=== PATIENT | female | born 1970 | race Caucasian/White ===

== ENCOUNTER 2018-06-11 04:01 | Inpatient (IN) ==
[2018-06-11] MEDS ORDERED: Sod Chloride 0.9% Inj 1,000 ML IV.SIG ONE (06:28)
[2018-06-11] MEDS ORDERED: Dexamethasone Inj 20 MG/5 ML Vial IV.PUSH ONE (06:28)
--- NOTE | 2018-06-11 06:52 | XR ---
EXAM DATE: 06/11/2018 6:49 AM EST AGE/SEX: 47 years / Female INDICATIONS: Fever. CLINICAL DATA: This is the patient's initial encounter. Patient reports that signs and symptoms have been present for 1 day and indicates a pain score of 0/10. MEDICAL/SURGICAL HISTORY: Asthma. None. COMPARISON: [facility] [place], 02/14/2015. . FINDINGS: A single AP view of the chest demonstrates the lungs to be symmetrically aerated without evidence of mass, infiltrate or effusion. The cardiomediastinal contours are unremarkable. Osseous structures a re intact. CONCLUSION: No acute disease Electronically signed by: Gonsalo Duque MD 06/11/2018 6:51 AM EST
[2018-06-11 07:01] LABS: Baso # (Auto) 0.1 th/mm3 (0.0-0.2); Baso % (Auto) 0.8 % (0.0-2.0); Eos # (Auto) 0.3 th/mm3 (0.0-0.4); Eos % (Auto) 2.5 % (0.0-4.0); Hematocrit 45.2 % (35.0-46.0); Hemoglobin 15.5 gm/dL (11.6-15.3); Lymph # (Auto) 2.3 th/mm3 (1.0-4.8); Lymph % (Auto) 18.5 % (9.0-44.0); Mean Corpuscular HGB Conc 34.3 % (32.0-36.0); Mean Corpuscular Hemoglobin 31.7 pg (27.0-34.0); Mean Corpuscular Volume 92.4 fL (80.0-100.0); Mono # (Auto) 0.9 th/mm3 (0.0-0.9); Mono % (Auto) 6.9 % (0.0-8.0); Neut % (Auto) 71.3 % (16.0-70.0); Platelet Count 274 th/mm3 (150-450); Red Blood Count 4.89 mil/mm3 (4.00-5.30); White Blood Count 12.6 th/mm3 (4.0-11.0)
[2018-06-11 07:09] LABS: Alanine Aminotransferase 43 U/L (10-53); Albumin 3.6 g/dL (3.4-5.0); Anion Gap 6 meq/L (5-15); Aspartate Aminotransferase 13 U/L (15-37); Blood Urea Nitrogen 10 mg/dL (7-18); Calcium 8.8 mg/dL (8.5-10.1); Carbon Dioxide 31.2 meq/L (21.0-32.0); Chloride 104 meq/L (98-107); Glomerular Filtration Rate 60 mL/min (>89); Glucose,Random 95 mg/dL (74-106); Potassium 3.1 meq/L (3.5-5.1); Sodium 141 meq/L (136-145)
[2018-06-11 07:12] LABS: Alkaline Phosphatase 127 U/L (45-117); Total Protein 7.8 g/dL (6.4-8.2)
--- NOTE | 2018-06-11 07:24 | ED ---
HPI General Chief complaint: Skin/Abscess/Foreign Body Stated complaint: Cold,Flu Time Seen by Provider: 06/11/18 06:28 History of Present Illness HPI narrative: This is a 47-year-old female who presents today with complaints of diffuse body rash, fevers, sore throat, shingles to her buttocks. Patient states that she has a history of hypertension and was was recently started on blood pressure medication on 05/30/2018. She reports that 4 days ago she is noticed a sore throat and 2 days after that the rash came up over her chest back legs and trunk. Patient also has shingles to her buttocks. She states that she had it a few weeks ago and it resolved however is now coming back again. The patient does give history that she is been using drugs over the last few days. She states that she shot up in her right arm and has a erythematous warm warty edematous area on her right lateral elbow area. She also reports using marijuana and "G". She states that she is never used it until those 4 days. She states that she was going through a mid life crisis. Related Data Home Medications Medication Instructions Recorded Confirmed buspirone 15 mg PO BID 06/11/18 06/11/18 diltiazem HCl 180 mg PO DAILY 06/11/18 06/11/18 fluoxetine 20 mg PO DAILY 06/11/18 06/11/18 pregabalin [Lyrica] 150 mg PO TID 06/11/18 06/11/18 Allergies Allergy/AdvReac Type Severity Reaction Status Date / Time alcohol Allergy Mild Anaphylaxis Verified 06/11/18 04:36 sumatriptan AdvReac Intermediate Itching Verified 06/11/18 04:36 Review of Systems ROS: all other systems reviewed are negative Constitutional Reports chills and Reports fever(s) Eyes Denies blurry vision, Denies diplopia and Denies eye pain ENT Reports system reviewed and no additional complaints, except as docu, Denies neck pain, Denies post nasal drip and Reports sore throat Cardiovascular Denies chest pain, Denies diaphoresis, Denies syncope and Reports dyspnea Respiratory Denies chest congestion, Reports cough and Reports dyspnea Gastrointestinal Denies abdominal pain, Reports nausea and Denies vomiting Genitourinary Reports system reviewed and no additional complaints, except as docu Musculoskeletal Denies back pain, Denies neck pain, Denies numbness and Denies tingling Integumentary/Breasts Reports new lesions (Shingles type lesions to her buttocks.) and Reports rash ( Diffuse urticarial raised macular rash to chest trunk back and legs.) Neurologic Reports system reviewed and no additional complaints, except as docu [facility] Medical History Medical History Anxiety (Acute) Asthma (Acute) Depression (Acute) HTN (hypertension) (Acute) Neuropathy (Acute) Social History Social History Smoking Status: Current every day smoker Tobacco Type: Cigarettes How Often Do You Have a Drink Containing Alcohol: Never Recent Travel in [facility] within the Last 8 Weeks: No Recent Out of Country Travel within the Last 8 Weeks: No Immunization History Tetanus Immunization: >5 Years Exam Narrative Exam Narrative: GENERAL: Well-developed well-nourished female in no acute respiratory distress. SKIN: Focused skin assessment warm/dry. Patient has diffuse macular rash to her anterior chest back and legs. This does have a look of a drug eruption. There is also macular papular rash to her buttocks is consistent with shingles. HEAD: Atraumatic. Normocephalic. EYES: No scleral icterus. No injection or drainage. ENT: No nasal bleeding or discharge. Mucous membranes pink and moist. NECK: Trachea midline. Supple. CARDIOVASCULAR: Regular rate and rhythm. No murmur appreciated. RESPIRATORY: No accessory muscle use. Clear to auscultation. Breath sounds equal bilaterally. GASTROINTESTINAL: Abdomen soft, non-tender, nondistended. Hepatic and splenic margins not palpable. MUSCULOSKELETAL: No obvious deformities. No clubbing. No cyanosis. No edema. Erythematous edematous area to the right lateral forearm. There is no fluctuance. This is consistent to a possible early cellulitis versus deep abscess. NEUROLOGICAL: Awake and alert. No obvious cranial nerve deficits. Motor grossly within normal limits. Normal speech. Course Initial Documented Vital Signs Temperature 98.6 F 06/11/18 04:32 Pulse Rate 99 H 06/11/18 04:32 Respiratory Rate 17 06/11/18 04:32 Blood Pressure 136/85 06/11/18 04:32 Pulse Oximetry 99 06/11/18 04:32 Last Documented Vital Signs Temperature 98.6 F 06/11/18 04:32 Pulse Rate 99 H 06/11/18 04:32 Respiratory Rate 17 06/11/18 04:32 Blood Pressure 136/85 06/11/18 04:32 Pulse Oximetry 98 06/11/18 06:43 Sign Out Sign Out Data: Patient Sign Out occurred on 06/11/18 at 08:01. Patient's care was discussed, and care was transferred from Dong Frazier MD to Adis Rios. Sign Out Comment: 47-year-old female with a history of hypertension, presents today with complaints of diffuse rash. Patient also has subjective fever and sore throat. She has exudative tonsillitis. She also has a erythematous woody edematous area to her right forearm. She states this is an area where she shot up methamphetamines. I anticipate the patient will need admission. Disposition will be per Dr. Rios. Last updated by Dong Frazier MD at 06/11/18 07:25 Post-Handoff Eval: Reactive leukocytosis of 12,000 without any left shift Electrolytes are all within normal limits with the exception of potassium of 3.1 which will need replacement Lactic acid 1.4 not significant for severe sepsis LFTs are within normal limits Monoscreen negative Strep positive Patient on reevaluation was nontoxic, tolerated p.o., tolerated a walk test with normal pulse oximetry of 98 after ambulating around. Patient will be treated with Bicillin 1,200,000 units IM x1 due to patients drug use and scarlet fever findings will be observed for myocarditis Medical Decision Making MDM Narrative Medical decision making narrative: 47-year-old female presents with diffuse rash. Patient also has subjective fever and sore throat. Patient has erythematous posterior pharynx with questionable tonsillar exudate. She is afebrile at the time of her presentation. Patient does give history that she is been using drugs including IV drugs. Labs are pending at the time of signout. She is been signed out to Dr. Rios who will follow up. I anticipate this patient will need admission. Medical Screen Exam Complete: Yes Emergency Medical Condition: Yes Differential Diagnosis Differential Diagnosis: Drug reaction versus septic emboli versus allergic reaction versus viral exanthem Lab Data Result diagrams: 06/11/18 06:35 06/11/18 06:35 Lab Results 06/11/18 06/11/18 06/11/18 Range/Units 05:50 06:30 06:35 WBC 12.6 H (4.0-11.0) th/mm3 RBC 4.89 (4.00-5.30) mil/mm3 Hgb 15.5 H (11.6-15.3) gm/dL Hct 45.2 (35.0-46.0) % MCV 92.4 (80.0-100.0) fL MCH 31.7 (27.0-34.0) pg MCHC 34.3 (32.0-36.0) % RDW 13.0 (11.6-17.2) % Plt Count 274 (150-450) th/mm3 MPV 9.0 (7.0-11.0) fL Neut % (Auto) 71.3 H (16.0-70.0) % Lymph % (Auto) 18.5 (9.0-44.0) % [place] % (Auto) 6.9 (0.0-8.0) % Eos % (Auto) 2.5 (0.0-4.0) % Baso % (Auto) 0.8 (0.0-2.0) % Neut # (Auto) 9.0 H (1.8-7.7) th/mm3 Lymph # (Auto) 2.3 (1.0-4.8) th/mm3 [place] # (Auto) 0.9 (0.0-0.9) th/mm3 Eos # (Auto) 0.3 (0.0-0.4) th/mm3 Baso # (Auto) 0.1 (0.0-0.2) th/mm3 WBC Differential . Differential Comment Auto diff final Sodium (136-145) meq/L Potassium (3.5-5.1) meq/L Chloride (98-107) meq/L Carbon Dioxide (21.0-32.0) meq/L Anion Gap (5-15) meq/L BUN (7-18) mg/dL Creatinine (0.50-1.00) mg/dL Estimated GFR (>89) mL/min Random Glucose (74-106) mg/dL Lactic Acid 1.4 (0.4-2.0) mmol/L Calcium (8.5-10.1) mg/dL Total Bilirubin (0.2-1.0) mg/dL AST (15-37) U/L ALT (10-53) U/L Alkaline Phosphatase (45-117) U/L Total Protein (6.4-8.2) g/dL Albumin (3.4-5.0) g/dL Monoscreen Neg (Neg) 06/11/18 Range/Units 06:35 WBC (4.0-11.0) th/mm3 RBC (4.00-5.30) mil/mm3 Hgb (11.6-15.3) gm/dL Hct (35.0-46.0) % MCV (80.0-100.0) fL MCH (27.0-34.0) pg MCHC (32.0-36.0) % RDW (11.6-17.2) % Plt Count (150-450) th/mm3 MPV (7.0-11.0) fL Neut % (Auto) (16.0-70.0) % Lymph % (Auto) (9.0-44.0) % [place] % (Auto) (0.0-8.0) % Eos % (Auto) (0.0-4.0) % Baso % (Auto) (0.0-2.0) % Neut # (Auto) (1.8-7.7) th/mm3 Lymph # (Auto) (1.0-4.8) th/mm3 [place] # (Auto) (0.0-0.9) th/mm3 Eos # (Auto) (0.0-0.4) th/mm3 Baso # (Auto) (0.0-0.2) th/mm3 WBC Differential Differential Comment Sodium 141 (136-145) meq/L Potassium 3.1 L (3.5-5.1) meq/L Chloride 104 (98-107) meq/L Carbon Dioxide 31.2 (21.0-32.0) meq/L Anion Gap 6 (5-15) meq/L BUN 10 (7-18) mg/dL Creatinine 0.99 (0.50-1.00) mg/dL Estimated GFR 60 L (>89) mL/min Random Glucose 95 (74-106) mg/dL Lactic Acid (0.4-2.0) mmol/L Calcium 8.8 (8.5-10.1) mg/dL Total Bilirubin 0.3 (0.2-1.0) mg/dL AST 13 L (15-37) U/L ALT 43 (10-53) U/L Alkaline Phosphatase 127 H (45-117) U/L Total Protein 7.8 (6.4-8.2) g/dL Albumin 3.6 (3.4-5.0) g/dL Monoscreen (Neg) Imaging Data Radiologist's impression: Chest X-Ray 06/11/18 06:28 CONCLUSION: No acute disease Discharge Plan Discharge Disposition Patient Disposition: 30 Still Patient Discharge Condition Condition: Stable Discharge Details Diagnosis: Scarlet fever Physicians Team ED Provider: Adis Rios Rxs /Orders / Referrals /Forms Prescriptions: No Action diltiazem HCl 180 mg Capsule,Extended Release 24 Hr 180 mg PO DAILY RF: 0 fluoxetine 20 mg Capsule 20 mg PO DAILY RF: 0 buspirone 15 mg Tablet 15 mg PO BID RF: 0 pregabalin [Lyrica] 150 mg Capsule 150 mg PO TID RF: 0 Discharge Interventions Interventions: Vital Signs Last Done: 06/11/18 06:07 Status ED Status: With Doctor
[2018-06-11 07:36] LABS: Mono Screen Neg (Neg)
[2018-06-11] MEDS ORDERED: PENICILLIN IM ONE (08:01)
[2018-06-11] MEDS ORDERED: BENZATHINE IM ONE (08:01)
[2018-06-11 09:39] LABS: Amorphous Sediment,Urine Rare /hpf; Bacteria,Urine Moderate /hpf; Bilirubin,Urine Negative (Negative); Color,Urine Amber (Yellw/Straw); Glucose,Urine (UA) Negative (Negative); Leukocyte Esterase,Urine Trace (Negative); Mucus,Urine Many /lpf (Occasional); Nitrite,Urine Negative (Negative); Specific Gravity,Urine 1.026 (1.002-1.035); Squamous Epithelial Cell,Urine 20 /hpf (0-5)
[2018-06-11 09:40] LABS: Clarity,Urine Hazy (Clear)
[2018-06-11] MEDS: FLUoxetine 20 MG Capsule PO SCH (11:00)
--- NOTE | 2018-06-11 11:16 | P.HPIM ---
History of Present Illness Primary Care Physician: Elissa Chavarria DO Chief Complaint: Rash History of Present Illness: Ms. Calvert is a pleasant 47 y/o female with HTN, depression/anxiety, chronic back pain, shingles and tobacco abuse. She presented to the ED at [facility] [place] on 06/11/18 with complaints of diffuse body rash, fevers, sore throat, and an outbreak of shingles to her buttock. Patient states that she has a history of hypertension and was was recently started on Diltiazem 180mg daily on 05/30/2018. Prior to that she had been on Norvasc but had swelling and prior to that she had been in Lisinopril. Pt also with a recent hx of using multiple illicit drugs. Around 6 days ago she used, reportedly for the first time, smoked crack cocaine and took mushrooms on the same day. She also smoked pot that same day which was not a new drug for her. She reports that 4 days ago she noticed a mild sore throat and some post-nasal drip. Then 2 days ago she left a friend inject her right arm with crystal meth. Her right antecubital fossa has become increasingly red and swollen and tender. Then yesterday the pt reports that she developed a rash on her neck and chest which quickly spread to her abdomen, back, arms and legs. She has some erythematous macules on her forehead and ears but mostly spares the face. Over the last 2 days she has had some subjective fevers and chills with cold sweats but she did not take her temperature. Patient also has shingles to her buttocks which has been a recurrent issue for some time. She states that she had it a few weeks ago and it resolved however is now coming back again about a week ago. In the ED was noted to have exudative tonsillitis and throat swab tested positive for Group A Strep. Her WBC count was 12,000 without any left shift. Electrolytes were all within normal limits with the exception of potassium of 3.1. LFTs were within normal limits. [place]-screen negative. She was given an IM injection of Bicillin 1,200,000 units IM x1 and Decadron. Past Medical Hx: HTN Chronic back pain Anxiety Depression GERD Obesity Shingles, right buttock Past Surgical Hx: D&C x 3 Dilation and evacuation x 1 Cholecystectomy Foot/toe surgery Rhinoplasty for deviated septum Family Hx: Noncontributory Social Hx: Denies any alcohol use (+)Tobacco use, 1ppd since age 12 (+)Illicit drug use, recently used crack cocaine, mushrooms, marijuana around 6 days prior to admission. Injected crystal meth 2 days prior to admission. Pt has snorted cocaine in the past as well. 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 She is not , no children. Diagnosis (1) HTN (hypertension): (2) Scarlet fever: (3) Illicit drug use: (4) Tobacco use: (5) Cellulitis: (6) Shingles rash: Medications and Allergies Allergies Allergy/AdvReac Type Severity Reaction Status Date / Time alcohol Allergy Mild Anaphylaxis Verified 06/11/18 04:36 sumatriptan AdvReac Intermediate Itching Verified 06/11/18 04:36 Home Medications Medication Instructions Recorded Confirmed Type buspirone 15 mg PO BID 06/11/18 06/11/18 History diltiazem HCl 180 mg PO DAILY 06/11/18 06/11/18 History fluoxetine 20 mg PO TID 06/11/18 06/11/18 History pregabalin [Lyrica] 150 mg PO TID 06/11/18 06/11/18 History Active Medications: Active Medications Acetaminophen (Tylenol) 650 mg PO Q4H PRN PRN Reason: Temp > 100.4 Al Hydroxide/Mg Hydroxide (Milk Of Dahiana [place]) 30 ml PO Q12H PRN PRN Reason: Mild Constipation Buspirone HCl (Buspar) 15 mg PO BID [facility] Fluoxetine HCl (Prozac) 20 mg PO DAILY [facility] Last Admin: 06/11/18 11:00 Dose: 20 mg Miscellaneous (Pill Splitter) 1 each OTHER UNSCH PRN PRN Reason: SEE LABEL COMMENTS Ondansetron HCl (Zofran Inj) 4 mg IV.PUSH Q6H PRN PRN Reason: NAUSEA OR VOMITING Senna/Docusate Sodium (Deidra-Colace) 1 tab PO BID [facility] Sodium Chloride (Ns Flush) 2 ml IV.FLUSH PRN PRN PRN Reason: FLUSH AFTER USING IV ACCESS Last Admin: 06/11/18 09:08 Dose: 2 ml Physical Exam Vital signs: Last Vital Signs Temp 98.4 F 11/04/18 10:31 Pulse 78 06/11/18 10:31 Resp 20 06/11/18 10:31 BP 141/82 H 06/11/18 10:31 Pulse Ox 97 06/11/18 10:31 Narrative: GENERAL: NAD, AAOx3 SKIN: Warm and dry. Patient has diffuse macular rash to her anterior chest, back , neck, arms and legs even in the groin area. Some noted macular rash on the forehead/scalp and on the ears bilaterally. There is also macular papular rash lesion to her buttocks is consistent with shingles. HEAD: Atraumatic. Normocephalic. EYES: Pupils equal and round. No scleral icterus. No injection or drainage. ENT: No nasal bleeding or discharge. Mucous membranes pink and moist. NECK: Trachea midline. No JVD. CARDIOVASCULAR: Regular rate and rhythm. RESPIRATORY: No accessory muscle use. Clear to auscultation. Breath sounds equal bilaterally. GASTROINTESTINAL: Abdomen soft, non-tender, nondistended. Hepatic and splenic margins not palpable. MUSCULOSKELETAL: Erythema, swelling and tenderness in the right antecubital fossa. NEUROLOGICAL: Awake and alert. No obvious cranial nerve deficits. Motor grossly within normal limits. Five out of 5 muscle strength in the arms and legs. Normal speech. PSYCHIATRIC: Appropriate mood and affect; insight and judgment normal. Results Labs CBC & Chem 7: 06/12/18 04:51 06/12/18 04:51 Microbiology 06/11/18 06:35 Influenza Types A,B Antigen - Final Nasal Wash Negative for FLU A and B antigen Infection due to influenza A or B cannot be ruled out since the antigen present in the sample may be below the detection limit of the test. 06/11/18 06:35 Group A Streptococcus Screen (INO) - Final Throat Positive Grp A Strep Antigen Imaging Chest X-Ray 06/11/18 06:28 CONCLUSION: No acute disease Caprini VTE Risk Assessment Caprini VTE Risk Assessment: No/Low Risk (score <= 1) Caprini Risk Assessment Model: Point Value = 1 Point Value = 2 Point Value = 3 Point Value = 5 Age 41-60 Minor surgery BMI > 25 kg/m2 Swollen legs Varicose veins or History of unexplained or recurrent spontaneous Oral contraceptives or hormone replacement Sepsis (< 1 month) Serious lung disease, including pneumonia (< 1 month) Abnormal pulmonary function Acute myocardial infarction Congestive heart failure (< 1 month) History of inflammatory bowel disease Medical patient at bed rest Age 61-74 Arthroscopic surgery Major open surgery (> 45 min) Laparoscopic surgery (> 45 min) Malignancy Confined to bed (> 72 hours) Immobilizing plaster cast Central venous access Age >= 75 History of VTE Family history of VTE Factor V Leiden Prothrombin [id number] Lupus anticoagulant Anticardiolipin antibodies Elevated serum homocysteine Heparin-induced thrombocytopenia Other congenital or acquired thrombophilia Stroke (< 1 month) Elective arthroplasty Hip, pelvis, or leg fracture Acute spinal cord injury (< 1 month) Prophylaxis Regimen: Total Risk Factor Score Risk Level Prophylaxis Regimen 0-1 Low Early ambulation 2 Moderate Order ONE of the following: *Sequential Compression Device (SCD) *Heparin 5000 units SQ BID 3-4 Higher Order ONE of the following medications: *Heparin 5000 units SQ TID *Enoxaparin/Lovenox 40 mg SQ daily (WT < 150 kg, CrCl > 30 mL/min) *Enoxaparin/Lovenox 30 mg SQ daily (WT < 150 kg, CrCl > 10-29 mL/min) *Enoxaparin/Lovenox 30 mg SQ BID (WT < 150 kg, CrCl > 30 mL/min) AND/OR *Sequential Compression Device (SCD) 5 or more Highest Order ONE of the following medications: *Heparin 5000 units SQ TID (Preferred with Epidurals) *Enoxaparin/Lovenox 40 mg SQ daily (WT < 150 kg, CrCl > 30 mL/min) *Enoxaparin/Lovenox 30 mg SQ daily (WT < 150 kg, CrCl > 10-29 mL/min) *Enoxaparin/Lovenox 30 mg SQ BID (WT < 150 kg, CrCl > 30 mL/min) AND *Sequential Compression Device (SCD) Assessment and Plan Assessment (1) Scarlet fever: Code(s): A38.9 - Scarlet fever, uncomplicated Status: Acute (2) HTN (hypertension): Code(s): I10 - Essential (primary) hypertension Status: Chronic (3) Illicit drug use: Code(s): F19.90 - Other psychoactive substance use, unspecified, uncomplicated Status: Acute (4) Tobacco use: Code(s): Z72.0 - Tobacco use Status: Chronic (5) Cellulitis: Code(s): L03.90 - Cellulitis, unspecified Status: Acute (6) Shingles rash: Code(s): B02.9 - Zoster without complications Status: Acute Plan New onset rash with group A strep positive throat culture, possible Scarlet fever - Pt is a 47 y/o female with HTN, depression/anxiety, chronic back pain, shingles and tobacco abuse. - She presented to the ED at [facility] [place] on 06/11/18 with complaints of diffuse body rash , fevers, sore throat, and an outbreak of shingles to her buttock. Patient states that she has a history of hypertension and was was recently started on Diltiazem 180mg daily on 05/30/2018. Prior to that she had been on Norvasc but had swelling and prior to that she had been in Lisinopril. Pt also with a recent hx of using multiple illicit drugs. Around 6 days ago she used, reportedly for the first time, smoked crack cocaine and took mushrooms on the same day. She also smoked pot that same day which was not a new drug for her. She reports that 4 days ago she noticed a mild sore throat and some post-nasal drip. Then 2 days ago she left a friend inject her right arm with crystal meth. Her right antecubital fossa has become increasingly red and swollen and tender. Then yesterday the pt reports that she developed a rash on her neck and quickly spread to her abdomen, back, arms and legs. She has some erythematous macules on her forehead and ears but mostly spares the face. Over the last 2 days she has had some subjective fevers and chills with cold sweats but she did not take her temperature. - In the ED was noted to have exudative tonsillitis and throat swab tested positive for Group A Strep. - Her WBC count was 12,000 without any left shift. - Electrolytes were all within normal limits with the exception of potassium of 3.1 which will be replaced. LFTs were within normal limits. - [place]-screen negative. - She was given an IM injection of Bicillin 1,200,000 units IM x1 and Decadron. - Pt is on contact isolation - Tylenol PRN fevers - Zofran PRN nausea - Pt was given IVF in the ED - Cardiac diet as tolerated - Consult ID. The exact etiology for the pts diffuse rash is unclear, likely this is related to scarlet fever but can't rule out a reaction to something that was injected into the arm the day prior to the rash eruption. Cellulitis right antecubital fossa, site of IV drug injection - US soft tissue to r/o abscess - give Vancomycin for possible MRSA coverage Shingles, right buttock - Patient also has shingles to her buttocks which has been a recurrent issue for some time. - She states that she had it a few weeks ago and it resolved however is now coming back again about a week ago. - She denies being on any antiviral medications in the past - Start Valtrex 1000mg po TID Chronic back pain Lumbar radiculopathy - Pt takes Lyrica 150mg TID for this for the last 6 months. HTN - Pt had been recently started on Diltiazem 180mg po daily on 05/30/18. With this new rash we will hold on resuming the Diltiazem at this time, unclear if this may be attributing to the rash or if the rash is strictly related to the strep infection. - Clonidine PRN for now - Prior to this she was on Norvasc which caused swelling and prior to that she was on Lisinopril but this reportedly did not control her BP well - C Attending Attestation Patient examined. Assessment and plan formulated with Cara Fong PA-C. I agree with the above. pt developed sore throat. then injected crystal meth into right arm. next developed neck and truncal rash spread to extremities. gets recurrent herpes zoster on right lower back/buttock. throat strep positive. concern for scarlatina rash. echo and blood cx's. valtrex. ED gave 1.2M units IM pcn. vanco for forearm cellulitis. u/s to exclude abscess ID consult. H&P: Quality VTE Deep Vein Thrombosis/Pulmonary Embolism Present on Admission: No
[2018-06-11] MEDS ORDERED: Potassium Chloride 10 MEQ ER Capsule PO ONE (11:37)
[2018-06-11] MEDS ORDERED: Vancomycin Consult Pharmacy OTHER PRN (14:14)
[2018-06-11] MEDS ORDERED: Vancomycin Inj 1,000 MG in Sodium Chlor 0.9% Inj 250 ML IV.SIG SCH (15:00)
[2018-06-11] MEDS ORDERED: Vancomycin Inj 1 GM/200 ML PIGGYBACK IV.SIG SCH (15:00)
[2018-06-11] MEDS: valACYclovir 500 MG Tab PO SCH ×2 (16:20→21:40)
[2018-06-11] MEDS: Vancomycin Inj 2,000 MG in Sodium Chlor 0.9% Inj 500 ML IV.SIG SCH (16:20)
--- NOTE | 2018-06-11 16:38 | US ---
EXAM DATE: 06/11/2018 4:10 PM EST AGE/SEX: 47 years / Female INDICATIONS: Abscess. CLINICAL DATA: This is the patient's initial encounter. Patient reports that signs and symptoms have been present for 3 days and indicates a pain score of 3/10. MEDICAL/SURGICAL HISTORY: Hypertension. Anxiety. Asthma. Depression. Neuropathy. None. COMPARISON: No prior exams available for comparison. FINDINGS: Small amount of fluid is identified tracking within the soft tissues. There is no evidence of organiz ed fluid collections. Soft tissue swelling and hyperemia are noted. CONCLUSION: Soft tissue swelling with stranding fluid and hyperemia but no discrete abscess. Electronically signed by: Carmelo Buckley MD 06/11/2018 4:37 PM EST
[2018-06-11] MEDS: Pregabalin 75 MG Capsule PO SCH (18:47)
[2018-06-11] MEDS ORDERED: Melatonin 5 MG Tablet PO SCH (21:00)
[2018-06-11] MEDS: Senna/Docusate Sodium 8.6/50 MG Tablet PO SCH (21:42)
[2018-06-12 01:08] LABS: Amphetamine Screen,Urine Pos (Neg); Barbiturate Screen,Urine Neg (Neg); Cannabinoid Screen,Urine Pos (Neg); Cocaine Screen,Urine Pos (Neg)
[2018-06-12 01:09] LABS: Opiate Screen,Urine Neg (Neg)
[2018-06-12] MEDS: Acetaminophen 325 MG Tablet PO PRN ×2 (04:41→22:20)
[2018-06-12] MEDS: valACYclovir 500 MG Tab PO SCH ×3 (05:40→22:21)
[2018-06-12 05:48] LABS: Hematocrit 41.3 % (35.0-46.0); Hemoglobin 14.2 gm/dL (11.6-15.3); Lymph # (Auto) 2.4 th/mm3 (1.0-4.8); Lymph % (Auto) 14.5 % (9.0-44.0); Mean Corpuscular HGB Conc 34.3 % (32.0-36.0); Mean Corpuscular Hemoglobin 31.3 pg (27.0-34.0); Mean Corpuscular Volume 91.4 fL (80.0-100.0); Mean Platelet Volume 9.2 fL (7.0-11.0); Mono # (Auto) 0.8 th/mm3 (0.0-0.9); Mono % (Auto) 4.5 % (0.0-8.0); Neut # (Auto) 13.6 th/mm3 (1.8-7.7); Platelet Count 297 th/mm3 (150-450); Red Blood Count 4.52 mil/mm3 (4.00-5.30); Red Cell Distribution Width 13.2 % (11.6-17.2); White Blood Count 16.8 th/mm3 (4.0-11.0)
[2018-06-12 06:14] LABS: Albumin 3.4 g/dL (3.4-5.0); Anion Gap 9 meq/L (5-15); Aspartate Aminotransferase 12 U/L (15-37); Blood Urea Nitrogen 12 mg/dL (7-18); Carbon Dioxide 26.3 meq/L (21.0-32.0); Chloride 109 meq/L (98-107); Glomerular Filtration Rate 65 mL/min (>89); Glucose,Random 124 mg/dL (74-106); Potassium 3.7 meq/L (3.5-5.1); Sodium 144 meq/L (136-145)
[2018-06-12 06:15] LABS: Alanine Aminotransferase 35 U/L (10-53)
[2018-06-12 06:17] LABS: Alkaline Phosphatase 117 U/L (45-117); Total Protein 7.8 g/dL (6.4-8.2)
--- NOTE | 2018-06-12 08:27 | P.PNIM ---
Subjective Interval history: Pt is very anxious this morning because her Prozac order was incorrect. It was ordered at admission to be continued from her med rec but it appears that it was changed possibly by pharmacy to a once daily dose when she takes it three times daily. Pt reports that she has been unable to sleep Her rash is more itchy today and she had been requesting Benadryl overnight but she did not have this available overnight. Physical Exam Vital signs: Last Vital Signs Temp 99.3 F 06/12/18 04:00 Pulse 80 06/12/18 04:00 Resp 18 06/12/18 04:00 BP 156/74 H 06/12/18 04:00 Pulse Ox 96 06/12/18 04:00 Narrative: GENERAL: NAD, AAOx3 SKIN: Warm and dry. Patient has diffuse macular rash to her anterior chest, back , neck, arms and legs even in the groin area. Some noted macular rash on the forehead/scalp and on the ears bilaterally. There is also macular papular rash lesion to her buttocks is consistent with shingles. CARDIO: Regular rate and rhythm. RESP: CTA bilaterally. ABD: +BS, soft, non-tender, nondistended. EXT: Erythema, swelling and tenderness in the right antecubital fossa, improved today Results Labs CBC & Chem 7: 06/12/18 04:51 06/12/18 04:51 Imaging Soft Tissue Ultrasound 06/11/18 00:00 CONCLUSION: Soft tissue swelling with stranding fluid and hyperemia but no discrete abscess. Chest X-Ray 06/11/18 06:28 CONCLUSION: No acute disease Assessment and Plan Assessment (1) HTN (hypertension): Code(s): I10 - Essential (primary) hypertension Status: Chronic (2) Scarlet fever: Code(s): A38.9 - Scarlet fever, uncomplicated Status: Acute (3) Illicit drug use: Code(s): F19.90 - Other psychoactive substance use, unspecified, uncomplicated Status: Acute (4) Tobacco use: Code(s): Z72.0 - Tobacco use Status: Chronic (5) Cellulitis: Code(s): L03.90 - Cellulitis, unspecified Status: Acute (6) Shingles rash: Code(s): B02.9 - Zoster without complications Status: Acute Plan New onset rash with group A strep positive throat culture, possible Scarlet fever - Pt is a 47 y/o female with HTN, depression/anxiety, chronic back pain, shingles and tobacco abuse. - She presented to the ED at [facility] on 06/11/18 with complaints of diffuse body rash , fevers, sore throat, and an outbreak of shingles to her buttock. Patient states that she has a history of hypertension and was was recently started on Diltiazem 180mg daily on 05/30/2018. Prior to that she had been on Norvasc but had swelling and prior to that she had been in Lisinopril. Pt also with a recent hx of using multiple illicit drugs. Around 6 days ago she used, reportedly for the first time, smoked crack cocaine and took mushrooms on the same day. She also smoked pot that same day which was not a new drug for her. She reports that 4 days ago she noticed a mild sore throat and some post-nasal drip. Then 2 days ago she left a friend inject her right arm with crystal meth. Her right antecubital fossa has become increasingly red and swollen and tender. Then yesterday the pt reports that she developed a rash on her neck and quickly spread to her abdomen, back, arms and legs. She has some erythematous macules on her forehead and ears but mostly spares the face. Over the last 2 days she has had some subjective fevers and chills with cold sweats but she did not take her temperature. - In the ED was noted to have exudative tonsillitis and throat swab tested positive for Group A Strep. - Her WBC count was 12,000 without any left shift at admission - Electrolytes were all within normal limits with the exception of potassium of 3.1 which was replaced. LFTs were within normal limits. - [place]-screen negative. - HIV negative. - She was given an IM injection of Bicillin 1,200,000 units IM x1 and Decadron. - Pt is on contact isolation - Tylenol PRN fevers - Zofran PRN nausea - Pt was given IVF in the ED - Cardiac diet as tolerated - Consult ID. The exact etiology for the pts diffuse rash is unclear, likely this is related to scarlet fever but can't rule out a reaction to something that was injected into the arm the day prior to the rash eruption. - Benadryl Oral and topical PRN Cellulitis right antecubital fossa, site of IV drug injection - US soft tissue (06/11/18) --> Soft tissue swelling with stranding fluid and hyperemia but no discrete abscess. - Cont. Vancomycin for possible MRSA coverage Shingles, right buttock - Patient also has shingles to her buttocks which has been a recurrent issue for some time. - She states that she had it a few weeks ago and it resolved however is now coming back again about a week ago. - She denies being on any antiviral medications in the past - Cont. Valtrex 1000mg po TID Chronic back pain Lumbar radiculopathy - Pt takes Lyrica 150mg TID for this for the last 6 months, this was continued HTN - Pt had been recently started on Diltiazem 180mg po daily on 05/30/18. With this new rash we will hold on resuming the Diltiazem at this time, unclear if this may be attributing to the rash as it is a possible SE of Diltiazem or if the rash is strictly related to the strep infection. - Clonidine PRN for now - Prior to this she was on Norvasc which caused swelling and prior to that she was on Lisinopril but this reportedly did not control her BP well - May consider changing Diltiazem to Procardia XL 20mg daily for BP control. Anxiety - Cont. Prozac 20mg TID - Cont. Buspar 15mg BID - Add Xanax 0.5mg Q4H PRN, first dose now Progress Note: Quality VTE Deep Vein Thrombosis/Pulmonary Embolism Present on Admission: No
[2018-06-12] MEDS: Senna/Docusate Sodium 8.6/50 MG Tablet PO SCH (08:41)
[2018-06-12] MEDS: FLUoxetine 20 MG Capsule PO SCH ×3 (08:41→17:04)
[2018-06-12] MEDS: Pregabalin 75 MG Capsule PO SCH ×3 (08:41→17:04)
[2018-06-12] MEDS ORDERED: Menthol 5.8 MG Lozenge BUCCAL PRN (10:01)
[2018-06-12] MEDS ORDERED: ALPRAZolam 0.5 MG Tablet PO ONE (10:01)
[2018-06-12] MEDS: diphenhydrAMINE 2%/Zinc Cream 30 GM Tube TOPICAL PRN (12:08)
--- NOTE | 2018-06-12 14:38 | ECHRPT ---
Indication: SEPSIS POSS ENDOCARDITIS CONCLUSIONS Wall thickness is measured at the upper limits of normal. The left ventricular systolic function is normal with an estimated ejection fraction in the range of 55-60%. There is trace tricuspid valve regurgitation. The estimated pulmonary arterial pressure is 20 mmHg. BP: / HR: Rhythm: MEASUREMENTS (Male / Female) Normal Values Technical Quality:Very technically difficult study 2D ECHO LV Diastolic Diameter PLAX 3.9 cm 4.2 - 5.9 / 3.9 - 5.3 cm LV Systolic Diameter PLAX 2.7 cm IVS Diastolic Thickness 1.4 cm 0.6 - 1.0 / 0.6 - 0.9 cm LVPW Diastolic Thickness 1.1 cm 0.6 - 1.0 / 0.6 - 0.9 cm LV Relative Wall Thickness 0.6 RV Internal Dim ED PLAX 2.3 cm LVOT Diameter 1.6 cm M-MODE Aortic Root Diameter MM 3.1 cm LA Systolic Diameter MM 0.7 cm LA Ao Ratio MM 0.2 AV Cusp Separation MM 0.7 cm DOPPLER AV Peak Velocity 179.0 cm/s AV Peak Gradient 12.8 mmHg LVOT Peak Velocity 120.0 cm/s LVOT Peak Gradient 5.8 mmHg AV Area Cont Eq pk 1.3 cm Mitral E Point Velocity 70.5 cm/s Mitral A Point Velocity 109.0 cm/s Mitral E to A Ratio 0.6 TR Peak Velocity 159.0 cm/s TR Peak Gradient 10.1 mmHg Right Atrial Pressure 10.0 mmHg Pulmonary Artery Systolic Pressu 20.1 mmHg Right Ventricular Systolic Press 20.1 mmHg PV Peak Velocity 93.7 cm/s PV Peak Gradient 3.5 mmHg FINDINGS LEFT VENTRICLE Wall thickness is measured at the upper limits of normal. The left ventricular systolic function is normal with an estimated ejection fraction in the range of 55-60%. RIGHT VENTRICLE Normal right ventricular size and systolic function. LEFT ATRIUM The left atrial size is normal. RIGHT ATRIUM The right atrial size is normal. ATRIAL SEPTUM Normal atrial septal thickness without atrial level shunting by limited color doppler interrogation. AORTA The aortic root and proximal ascending aorta are normal in size on limited imaging. MITRAL VALVE Structurally normal mitral valve. No mitral valve stenosis or regurgitation. AORTIC VALVE Trileaflet aortic valve. No aortic valve stenosis or regurgitation. TRICUSPID VALVE There is trace tricuspid valve regurgitation. The estimated pulmonary arterial pressure is 20 mmHg. PULMONARY VALVE No pulmonary valve regurgitation or stenosis. VESSELS The inferior vena cava is normal in size. PERICARDIUM No pericardial effusion. Maurilio Thao MD, FACC, [facility] (Electronically Signed) Final Date:12 June 2018 14:36
[2018-06-12] MEDS: Vancomycin Inj 2,000 MG in Sodium Chlor 0.9% Inj 500 ML IV.SIG SCH (17:04)
--- NOTE | 2018-06-12 19:25 | P.CONID ---
History of Present Illness Service: Infectious Disease Consult date: 06/13/18 Requesting Physician: Keon Cox Reason for Consult: Evaluation and Mment of Fever,Rash, Shingles Primary Care Provider: UNKNOWN Chief Complaint: Rash History of Present Illness: Ms. Calvert is a 47-year-old female with past medical history significant for recurrent episodes of vesicular papular lesions on the upper end of her butt crack. She reports that these have occurred periodically over the last several years and resolve spontaneously but in the last 6 months that have been occurring with increasing frequency and a shorter interval. Patient reports that she has never sought medical attention for this and just dealt with this until her admission and she was told that this is shingles. She has never been on acyclovir in the past. Her past medical history is also significant for hypertension, depression, anxiety and chronic back pain. Patient presents to the emergency department at [facility] on June 11, 2018 with complaints of diffuse body rash, fevers, sore throat and an outbreak of the similar lesions which have now been diagnosed to be shingles on her buttock. Patient reports that this initially started with her having malaise and fever followed by sore throat and subsequently a rash. Thereafter she noticed the lesions on her buttock area pop up. Patient also self reports that she recently used multiple drugs including crack cocaine, eating mushrooms, smoking pot, crystal meth injection in her right arm. She reports that she started developing redness and erythema at the right AC fossa which is now increasingly become red and tender. Regarding the rash she noticed that she initially developed this around the neck and chest which then quickly spread to her abdomen back arms and legs. Patient also reports subjective fever chills with cold sweats but she did not take her temperature. While in the emergency room patient was noted to have an exudative tonsillitis and a throat swab was positive for group A strep. Her WBC count was 12,000 without any leftward shift her LFTs are normal. Her mono screen was negative and she was given an IM injection of Bicillin and Decadron. At the time of my evaluation patient is in the CDU unit awaiting inpatient admission. Patient is sitting up with feet by the bedside has no neck stiffness no headache no vision changes. She does have a diffuse rash all over her body including neck chest abdomen bilateral upper and lower extremities. She has good urine output. She has no diarrhea. Infectious diseases consulted for evaluation and management of fever with rash, group A strep positive tonsillitis, shingles. Pertinent positives and negatives: Patient reports being sexually active condom use and consistent. She does not know her HIV or hepatitis status. She reports being sexually active with both men and women. She denies engaging in oral sex prior to her episode of tonsillitis. She denies any vaginal discharge. She consented to being tested for HIV. She reports genital warts. She thinks she may have been told she has HSV genital area. Past Medical Hx: HTN Chronic back pain Anxiety Depression GERD Obesity Shingles, right buttock Past Surgical Hx: D&C x 3 Dilation and evacuation x 1 Cholecystectomy Foot/toe surgery Rhinoplasty for deviated septum Family Hx: Noncontributory Social Hx: Denies any alcohol use (+)Tobacco use, 1ppd since age 12 (+)Illicit drug use, recently used crack cocaine, mushrooms, marijuana around 6 days prior to admission. Injected crystal meth 2 days prior to admission. Pt has snorted cocaine in the past as well. 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 She is not , no children. Review of Systems All other systems reviewed negative except as stated in HPI PMFSH - History History Provided By: Patient - Medical History Medical History: Medical History (Last Updated 06/11/18 @ 04:35 by Tien De Leon) Anxiety Asthma Depression HTN (hypertension) Neuropathy - Tobacco History 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 STATES ONLY USE Marijuana Status: Active Route Used: Inhalation Last Used: Reason for Use: Feels Good, Get High Comment: INTERMITTENT CHRONIC USE Methamphetamine Type: CRYSTAL METH Status: Active Route Used: Intramuscular Frequency: TRIED ONCE Last Used: 06/09 Reason for Use: Curiosity Comment: RIGHT AC AREA. STATED LET A FRIEND INJECT HER. FIRST TIME USED-STATES ONLY TIME USED Crack/Cocaine Type: CRACK Status: Active Route Used: Inhalation Last Used: TUE/06/05- Reason for Use: Curiosity, Get High Comment: STATES SHE HAS USED COCAINE BEFORE. BUT THAT SHE TRIED CRACK FOR THE FIRST TIME - Travel History Recent Travel in the [place] Within the Last 8 Weeks: No Recent Travel Out of the Country Within the Last 8 Weeks: No - Immunization History Tetanus Immunization: >5 Years Medications and Allergies Active Medications: Active Medications Acetaminophen (Tylenol) 650 mg PO Q4H PRN PRN Reason: Temp > 100.4 Last Admin: 06/12/18 04:41 Dose: 650 mg Al Hydroxide/Mg Hydroxide (Milk Of Magnjasmine Liq) 30 ml PO Q12H PRN PRN Reason: Mild Constipation Alprazolam (Xanax) 0.5 mg PO Q4H PRN PRN Reason: ANXIETY Buspirone HCl (Buspar) 15 mg PO BID [facility] Last Admin: 06/12/18 08:41 Dose: 15 mg Clonidine HCl (Catapres) 0.1 mg PO Q6H PRN PRN Reason: SBP>160, DBP>90 Diphenhydramine HCl (Benadryl) 25 mg PO Q4H PRN PRN Reason: ITCHING Last Admin: 06/12/18 10:27 Dose: 25 mg Fluoxetine HCl (Prozac) 20 mg PO TID [facility] Last Admin: 06/12/18 17:04 Dose: 20 mg Vancomycin HCl 2,000 mg/ (Sodium Chloride) 520 mls @ 250 mls/hr IV.SIG Q24H [facility] Last Admin: 06/12/18 17:04 Dose: 250 mls/hr Menthol ([place]) 1 lozenge BUCCAL Q2H PRN PRN Reason: SORE THROAT Last Admin: 06/12/18 14:05 Dose: 1 lozenge Miscellaneous (Pill Splitter) 1 each OTHER UNSCH PRN PRN Reason: SEE LABEL COMMENTS Miscellaneous Information ([facility] Ordered Lab Info) 0 each OTHER ONCE ONE Stop: 06/14/18 15:46 Nicotine (Habitrol 14 Mg Patch.24 Hr) 1 patch T-DERMAL DAILY [facility] Last Admin: 06/12/18 08:42 Dose: 1 patch Nifedipine (Procardia Xl) 30 mg PO DAILY [facility] Last Admin: 06/12/18 17:25 Dose: 30 mg Ondansetron HCl (Zofran Inj) 4 mg IV.PUSH Q6H PRN PRN Reason: NAUSEA OR VOMITING Patch Removal (Remove Old Patch) 1 each T-DERMAL DAILY [facility] Last Admin: 06/12/18 08:42 Dose: 1 each Pharmacy Profile Note (Vancomycin Consult Pharmacy) 1 each OTHER UNSCH PRN PRN Reason: Pharmacy to dose Pregabalin (Lyrica) 150 mg PO TID [facility] Last Admin: 06/12/18 17:04 Dose: 150 mg Senna/Docusate Sodium (Deidra-Colace) 1 tab PO BID PRN PRN Reason: constipation Sodium Chloride (Ns Flush) 2 ml IV.FLUSH PRN PRN PRN Reason: FLUSH AFTER USING IV ACCESS Last Admin: 06/11/18 09:08 Dose: 2 ml Valacyclovir HCl (Valtrex) 1,000 mg PO Q8HR [facility] Last Admin: 06/12/18 14:05 Dose: 1,000 mg Zinc Acetate/Diphenhydramine (Benadryl 2% Cream) 1 applicatio TOPICAL Q8H PRN PRN Reason: itching rash Last Admin: 06/12/18 12:08 Dose: 1 applicatio Allergies Allergy/AdvReac Type Severity Reaction Status Date / Time alcohol Allergy Mild Anaphylaxis Verified 06/11/18 04:36 sumatriptan AdvReac Intermediate Itching Verified 06/11/18 04:36 Home Medications Medication Instructions Recorded Confirmed Type buspirone 15 mg PO BID 06/11/18 06/11/18 History diltiazem HCl 180 mg PO DAILY 06/11/18 06/11/18 History fluoxetine 20 mg PO TID 06/11/18 06/11/18 History pregabalin [Lyrica] 150 mg PO TID 06/11/18 06/11/18 History Exam Vital signs: Vital Signs 06/11/18 19:38 06/11/18 20:00 06/12/18 00:00 Temperature 98.8 F 98.8 F Pulse Rate 88 79 81 Respiratory Rate 18 18 19 Blood Pressure 135/77 154/87 H Pulse Oximetry 96 95 06/12/18 04:00 06/12/18 08:00 06/12/18 08:33 Temperature 99.3 F 98.2 F Pulse Rate 80 93 H 66 Respiratory Rate 18 18 Blood Pressure 156/74 H 150/79 H Pulse Oximetry 96 96 95 06/12/18 12:21 06/12/18 16:17 Temperature 97.9 F 98.5 F Pulse Rate 74 79 Respiratory Rate 18 18 Blood Pressure 165/89 H 141/67 H Pulse Oximetry 98 96 Intake & Output 06/12/18 06/12/18 06/13/18 06:59 18:59 06:59 Intake Total 520 / 520 Balance 520 / 520 Weight 102.2 kg Intake: IV 520 / 520 Vancomycin Inj 2,000 MG In NS 520 / 520 Inj 500 ML @ 250 mls/hr IV.SIG Q24H [facility] Rx#:[id number] Narrative: GENERAL: Well-nourished well-developed, not in acute distress SKIN: Diffuse maculopapular rash all over her body neck chest abdomen back bilateral lower extremities bilateral upper extremities. Right AC fossa area there is a golf ball sized area that is erythematous indurated but no fluctuance noted. There was warmth noted. Buttock area with right side vesicular lesions fairly characteristic of herpes zoster lesions. HEAD: Atraumatic. Normocephalic. No temporal or scalp tenderness. EYES: Pupils equal round and reactive. Scleral icterus. No injection or drainage. No petechia ENT: Nothing abnormal detected. Throat with no erythema, tonsillar enlargement or exudate. NECK: Trachea midline. Supple, nontender, no meningeal signs. CARDIOVASCULAR: HS audible. RESPIRATORY: Clear to auscultation bilaterally. GASTROINTESTINAL: Abdomen soft nontender. MUSCULOSKELETAL: Extremities without clubbing, cyanosis. NEUROLOGICAL: Alert oriented 3. Nonfocal. Psych cooperative IV line sites ok. Results - Labs CBC & Chem 7: 06/12/18 04:51 06/12/18 04:51 Labs: Laboratory Results - last 24 hr 06/11/18 06/11/18 06/12/18 09:17 18:11 04:51 WBC 16.8 H RBC 4.52 Hgb 14.2 Hct 41.3 MCV 91.4 MCH 31.3 MCHC 34.3 RDW 13.2 Plt Count 297 MPV 9.2 Neut % (Auto) 81.0 H Lymph % (Auto) 14.5 [place] % (Auto) 4.5 Eos % (Auto) 0.0 Baso % (Auto) 0.0 Neut # (Auto) 13.6 H Lymph # (Auto) 2.4 [place] # (Auto) 0.8 Eos # (Auto) 0.0 Baso # (Auto) 0.0 WBC Differential . Differential Comment Auto diff final Sodium Potassium Chloride Carbon Dioxide Anion Gap BUN Creatinine Estimated GFR Random Glucose Calcium Total Bilirubin AST ALT Alkaline Phosphatase Total Protein Albumin Urine Opiates Screen Neg Ur Barbiturates Screen Neg Ur Amphetamines Screen Pos H U Benzodiazepines Scrn Neg Urine Cocaine Screen Pos H U Cannabinoids Screen Pos H HIV 1&2 Ab/P24 Ag 4thGn Nonreactive 06/12/18 04:51 WBC RBC Hgb Hct MCV MCH MCHC RDW Plt Count MPV Neut % (Auto) Lymph % (Auto) [place] % (Auto) Eos % (Auto) Baso % (Auto) Neut # (Auto) Lymph # (Auto) [place] # (Auto) Eos # (Auto) Baso # (Auto) WBC Differential Differential Comment Sodium 144 Potassium 3.7 Chloride 109 H Carbon Dioxide 26.3 Anion Gap 9 BUN 12 Creatinine 0.92 Estimated GFR 65 L Random Glucose 124 H Calcium 9.0 Total Bilirubin 0.2 AST 12 L ALT 35 Alkaline Phosphatase 117 Total Protein 7.8 Albumin 3.4 Urine Opiates Screen Ur Barbiturates Screen Ur Amphetamines Screen U Benzodiazepines Scrn Urine Cocaine Screen U Cannabinoids Screen HIV 1&2 Ab/P24 Ag 4thGn - Imaging Soft Tissue Ultrasound 06/11/18 00:00 CONCLUSION: Soft tissue swelling with stranding fluid and hyperemia but no discrete abscess. Chest X-Ray 06/11/18 06:28 CONCLUSION: No acute disease Assessment and Plan - Plan h/o fever, now rash, Grp A strep tonsillitis ? Group A Strep related. Rule out acute retroviral syndrome, acute syphilis patient has risk factors. Right AC fossa early abscess vs thrombophlebitis. Herpes zoster right buttock. Leucocytosis: infection but recd decardon so appears increased since admission. No signs of worsening infection. Recs: Check HIV RNA PCR to r/o acute retroviral syndrome. Noted HIV screen negative. Check VZV RNA PCR to r.o disseminated Herpes zoster although appears less likely based on the chest and other lesions as they are non vesicular. Check Hepatitis profile. Check RPR Check GC and Chlam Continue Acyclovir Continue Vanco IV (target 10-15) Follow cultures Follow clinical course. If Right AC fossa area does not improve consider Doppler to r.o septic thrombophlebitis and hand surgery consult. Follow rash and buttock lesions.
[2018-06-12] MEDS: ALPRAZolam 0.5 MG Tablet PO PRN (22:22)
[2018-06-13] MEDS: valACYclovir 500 MG Tab PO SCH ×3 (07:00→21:02)
--- NOTE | 2018-06-13 08:44 | P.PNIM ---
Subjective Interval history: Pt is much less anxious this morning The medication adjustments helped significantly Pt was able to sleep last night. Her right forearm redness is about the same the induration is slightly more localized Physical Exam Vital signs: Last Vital Signs Temp 98.0 F 06/13/18 08:21 Pulse 73 06/13/18 08:21 Resp 16 06/13/18 08:21 BP 137/78 06/13/18 08:21 Pulse Ox 98 06/13/18 08:21 Narrative: GENERAL: NAD, AAOx3 SKIN: Warm and dry. Patient has diffuse macular rash to her anterior chest, back , neck, arms and legs even in the groin area. Some spreading to the hands and feet. The rash is more confluent on her chest today. Some noted macular rash on the forehead/scalp and on the ears bilaterally. There is also macular papular rash lesion to her buttocks is consistent with shingles. CARDIO: Regular rate and rhythm. RESP: CTA bilaterally. ABD: +BS, soft, non-tender, nondistended. EXT: Erythema, swelling in the right antecubital fossa, improved and more localized. Results Labs CBC & Chem 7: 06/12/18 04:51 06/12/18 04:51 Assessment and Plan Plan New onset rash with group A strep positive throat culture, possible Scarlet fever - Pt is a 47 y/o female with HTN, depression/anxiety, chronic back pain, shingles and tobacco abuse. - She presented to the ED at [facility] on 06/11/18 with complaints of diffuse body rash , fevers, sore throat, and an outbreak of shingles to her buttock. Patient states that she has a history of hypertension and was was recently started on Diltiazem 180mg daily on 05/30/2018. Prior to that she had been on Norvasc but had swelling and prior to that she had been in Lisinopril. Pt also with a recent hx of using multiple illicit drugs. Around 6 days ago she used, reportedly for the first time, smoked crack cocaine and took mushrooms on the same day. She also smoked pot that same day which was not a new drug for her. She reports that 4 days ago she noticed a mild sore throat and some post-nasal drip. Then 2 days ago she left a friend inject her right arm with crystal meth. Her right antecubital fossa has become increasingly red and swollen and tender. Then yesterday the pt reports that she developed a rash on her neck and quickly spread to her abdomen, back, arms and legs. She has some erythematous macules on her forehead and ears but mostly spares the face. Over the last 2 days she has had some subjective fevers and chills with cold sweats but she did not take her temperature. - In the ED was noted to have exudative tonsillitis and throat swab tested positive for Group A Strep. - Her WBC count was 12,000 without any left shift at admission - Electrolytes were all within normal limits with the exception of potassium of 3.1 which was replaced. LFTs were within normal limits. - [place]-screen negative. - HIV negative. - She was given an IM injection of Bicillin 1,200,000 units IM x1 and Decadron. - Pt is on contact isolation - Tylenol PRN fevers - Zofran PRN nausea - Pt was given IVF in the ED - Cardiac diet as tolerated - Appreciate consult from ID. The exact etiology for the pts diffuse rash is unclear, likely this is related to scarlet fever but can't rule out a reaction to something that was injected into the arm the day prior to the rash eruption. - ID has ordered, HIV RNA PCR to r/o acute retroviral syndrome, VZV RNA PCR to r /o disseminated Herpes zoster, Hepatitis profile, RPR, GC and Chlam - Blood cultures with NGTD - Benadryl Oral and topical PRN Cellulitis right antecubital fossa, site of IV drug injection - US soft tissue (06/11/18) --> Soft tissue swelling with stranding fluid and hyperemia but no discrete abscess. - Cont. Vancomycin for possible MRSA coverage - If Right AC fossa area does not improve consider Doppler to r/o septic thrombophlebitis and hand surgery consult. Shingles, right buttock - Patient also has shingles to her buttocks which has been a recurrent issue for some time. - She states that she had it a few weeks ago and it resolved however is now coming back again about a week ago. - She denies being on any antiviral medications in the past - Cont. Valtrex 1000mg po TID Chronic back pain Lumbar radiculopathy - Pt takes Lyrica 150mg TID for this for the last 6 months, this was continued HTN - Pt had been recently started on Diltiazem 180mg po daily on 05/30/18. With this new rash we will hold on resuming the Diltiazem at this time, unclear if this may be attributing to the rash as it is a possible SE of Diltiazem or if the rash is strictly related to the strep infection. - Clonidine PRN for now - Prior to this she was on Norvasc which caused swelling and prior to that she was on Lisinopril but this reportedly did not control her BP well - Pt was started on Procardia XL 30mg daily for BP control but her BP this afternoon has been much lower. - Stop the Procardia and start Lisinopril 10mg po BID in AM. Anxiety - Cont. Prozac 20mg TID - Cont. Buspar 15mg BID - Cont. Xanax 0.5mg Q4H PRN - Pt reports increased depression and is requesting to speak with a Psychiatrist. - Pt should also followup outpt with [facility] upon discharge. Progress Note: Quality VTE Deep Vein Thrombosis/Pulmonary Embolism Present on Admission: No
[2018-06-13] MEDS: FLUoxetine 20 MG Capsule PO SCH ×3 (09:24→18:03)
[2018-06-13] MEDS: Pregabalin 75 MG Capsule PO SCH ×3 (09:25→18:02)
[2018-06-13] MEDS: diphenhydrAMINE 2%/Zinc Cream 30 GM Tube TOPICAL PRN (09:26)
[2018-06-13] MEDS: Acetaminophen 325 MG Tablet PO PRN ×3 (09:57→20:42)
--- NOTE | 2018-06-13 12:57 | P.PNID ---
Subjective Remarks: Ms. Calvert is a 47-year-old female with past medical history significant for recurrent episodes of vesicular papular lesions on the upper end of her butt crack. She reports that these have occurred periodically over the last several years and resolve spontaneously but in the last 6 months that have been occurring with increasing frequency and a shorter interval. Patient reports that she has never sought medical attention for this and just dealt with this until her admission and she was told that this is shingles. She has never been on acyclovir in the past. Her past medical history is also significant for hypertension, depression, anxiety and chronic back pain. Patient presents to the emergency department at [facility] on June 11, 2018 with complaints of diffuse body rash, fevers, sore throat and an outbreak of the similar lesions which have now been diagnosed to be shingles on her buttock. Patient reports that this initially started with her having malaise and fever followed by sore throat and subsequently a rash. Thereafter she noticed the lesions on her buttock area pop up. Patient also self reports that she recently used multiple drugs including crack cocaine, eating mushrooms, smoking pot, crystal meth injection in her right arm. She reports that she started developing redness and erythema at the right AC fossa which is now increasingly become red and tender. Regarding the rash she noticed that she initially developed this around the neck and chest which then quickly spread to her abdomen back arms and legs. Patient also reports subjective fever chills with cold sweats but she did not take her temperature. While in the emergency room patient was noted to have an exudative tonsillitis and a throat swab was positive for group A strep. Her WBC count was 12,000 without any leftward shift her LFTs are normal. Her mono screen was negative and she was given an IM injection of Bicillin and Decadron. At the time of my evaluation patient is in the CDU unit awaiting inpatient admission. Patient is sitting up with feet by the bedside has no neck stiffness no headache no vision changes. She does have a diffuse rash all over her body including neck chest abdomen bilateral upper and lower extremities. She has good urine output. She has no diarrhea. Infectious diseases consulted for evaluation and management of fever with rash, group A strep positive tonsillitis, shingles. Overnight events reviewed No fevers Diffuse rash all over the body now involving palms. RPR pending. No diarrhea Swelling at Right AC fossa improved. Antibiotics: Vanco IV Acyclovir oral Lines: Lines ok Past Medical History: reviewed Allergies/Adverse Reactions: Allergies alcohol Allergy (Mild, Verified 06/11/18 04:36) Anaphylaxis sumatriptan Adverse Reaction (Intermediate, Verified 06/11/18 04:36) Itching Objective Vital Signs 06/12/18 16:17 06/12/18 20:00 06/13/18 00:00 Temperature 98.5 F 98.7 F Pulse Rate 79 76 72 Respiratory Rate 18 18 Blood Pressure 141/67 H 144/86 H 132/76 Pulse Oximetry 96 98 06/13/18 04:00 06/13/18 08:21 06/13/18 12:32 Temperature 98.4 F 98.0 F 98.5 F Pulse Rate 84 73 74 Respiratory Rate 18 16 16 Blood Pressure 134/72 137/78 108/53 L Pulse Oximetry 96 98 97 Intake & Output 06/12/18 06/13/18 06/13/18 18:59 06:59 18:59 Intake Total 520 / 520 Balance 520 / 520 Weight 102.2 kg Intake: IV 520 / 520 Vancomycin Inj 2,000 MG In NS 520 / 520 Inj 500 ML @ 250 mls/hr IV.SIG Q24H [facility] Rx#:[id number] 06/11/18 06:25 Blood - Peripheral Aerobic Blood Culture - Preliminary No growth in 2 days 06/11/18 06:25 Blood - Peripheral Anaerobic Blood Culture - Preliminary No growth in 2 days 06/11/18 06:35 Blood - Peripheral Aerobic Blood Culture - Preliminary No growth in 2 days 06/11/18 06:35 Blood - Peripheral Anaerobic Blood Culture - Preliminary No growth in 2 days 06/11/18 09:17 Random Urine Urine Culture - Final 50-100,000 cfu/mL mixed robina (probable contaminants ) 06/11/18 06:35 Nasal Wash Influenza Types A,B Antigen - Final Negative for FLU A and B antigen Infection due to influenza A or B cannot be ruled out since the antigen present in the sample may be below the detection limit of the test. 06/11/18 06:35 Throat Group A Streptococcus Screen (INO) - Final Positive Grp A Strep Antigen Lab - Hematology Results 06/12/18 04:51 WBC 16.8 H RBC 4.52 Hgb 14.2 Hct 41.3 MCV 91.4 MCH 31.3 MCHC 34.3 RDW 13.2 Plt Count 297 MPV 9.2 Neut % (Auto) 81.0 H Lymph % (Auto) 14.5 Daniels % (Auto) 4.5 Eos % (Auto) 0.0 Baso % (Auto) 0.0 Neut # (Auto) 13.6 H Lymph # (Auto) 2.4 Daniels # (Auto) 0.8 Eos # (Auto) 0.0 Baso # (Auto) 0.0 WBC Differential . Differential Comment Auto diff final Lab - Chemistry Results 06/12/18 04:51 Sodium 144 Potassium 3.7 Chloride 109 H Carbon Dioxide 26.3 Anion Gap 9 BUN 12 Creatinine 0.92 Estimated GFR 65 L Random Glucose 124 H Calcium 9.0 Total Bilirubin 0.2 AST 12 L ALT 35 Alkaline Phosphatase 117 Total Protein 7.8 Albumin 3.4 Imaging: ITS Impressions Soft Tissue Ultrasound 06/11/18 00:00 CONCLUSION: Soft tissue swelling with stranding fluid and hyperemia but no discrete abscess. Chest X-Ray 06/11/18 06:28 CONCLUSION: No acute disease Physical Exam: GENERAL: Well-nourished well-developed, not in acute distress SKIN: Diffuse maculopapular rash all over her body neck chest abdomen back bilateral lower extremities bilateral upper extremities. Right AC fossa area there is a golf ball sized area that is erythematous indurated but no fluctuance noted. There was warmth noted. Buttock area with right side vesicular lesions fairly characteristic of herpes zoster lesions. HEAD: Atraumatic. Normocephalic. No temporal or scalp tenderness. EYES: Pupils equal round and reactive. Scleral icterus. No injection or drainage. No petechia ENT: Nothing abnormal detected. Throat with no erythema, tonsillar enlargement or exudate. NECK: Trachea midline. Supple, nontender, no meningeal signs. CARDIOVASCULAR: HS audible. RESPIRATORY: Clear to auscultation bilaterally. GASTROINTESTINAL: Abdomen soft nontender. MUSCULOSKELETAL: Extremities without clubbing, cyanosis. NEUROLOGICAL: Alert oriented 3. Nonfocal. Psych cooperative IV line sites ok. Assessment and Plan - Plan h/o fever, now rash, Grp A strep tonsillitis ? Group A Strep related. Rule out acute retroviral syndrome, acute syphilis patient has risk factors. Right AC fossa early abscess vs thrombophlebitis. Herpes zoster right buttock. Leucocytosis: infection but recd decardon so appears increased since admission. No signs of worsening infection. Recs: Check HIV RNA PCR to r/o acute retroviral syndrome. Noted HIV screen negative. Check VZV RNA PCR to r.o disseminated Herpes zoster although appears less likely based on the chest and other lesions as they are non vesicular. Check Hepatitis profile. Check RPR Check GC and Chlam Continue Acyclovir Continue Vanco IV (target 10-15) Follow cultures Follow clinical course. If Right AC fossa area does not improve consider Doppler to r.o septic thrombophlebitis and hand surgery consult. Follow rash and buttock lesions. covering for me for this patient from 06/14/18 to 06/16/18.
[2018-06-13 13:18] LABS: Hepatitits B Surface Antigen Nonreactive (Nonreactive)
[2018-06-13 13:47] LABS: Hepatitis A IgM Antibody Nonreactive (Nonreactive)
[2018-06-13] MEDS: ALPRAZolam 0.5 MG Tablet PO PRN ×2 (13:59→20:44)
[2018-06-13] MEDS: Vancomycin Inj 2,000 MG in Sodium Chlor 0.9% Inj 500 ML IV.SIG SCH (18:02)
[2018-06-13] MEDS: Enoxaparin Inj 40 MG/0.4 ML Syringe SQ SCH (18:02)
[2018-06-13] MEDS: Senna/Docusate Sodium 8.6/50 MG Tablet PO PRN ×2 (20:44→21:02)
[2018-06-13] MEDS ORDERED: Lisinopril 10 MG Tablet PO SCH (21:00)
[2018-06-14] MEDS: valACYclovir 500 MG Tab PO SCH ×2 (05:55→14:20)
[2018-06-14 08:28] LABS: Baso # (Auto) 0.1 th/mm3 (0.0-0.2); Baso % (Auto) 1.2 % (0.0-2.0); Eos # (Auto) 0.3 th/mm3 (0.0-0.4); Eos % (Auto) 3.7 % (0.0-4.0); Hematocrit 38.5 % (35.0-46.0); Hemoglobin 13.4 gm/dL (11.6-15.3); Lymph # (Auto) 3.1 th/mm3 (1.0-4.8); Lymph % (Auto) 34.9 % (9.0-44.0); Mean Corpuscular HGB Conc 34.8 % (32.0-36.0); Mean Platelet Volume 9.2 fL (7.0-11.0); Mono % (Auto) 10.9 % (0.0-8.0); Neut # (Auto) 4.4 th/mm3 (1.8-7.7); Neut % (Auto) 49.3 % (16.0-70.0); Platelet Count 261 th/mm3 (150-450); Red Blood Count 4.19 mil/mm3 (4.00-5.30); Red Cell Distribution Width 13.1 % (11.6-17.2)
[2018-06-14] MEDS: Lisinopril 10 MG Tablet PO SCH ×2 (10:00→23:07)
[2018-06-14] MEDS: Pregabalin 75 MG Capsule PO SCH ×3 (10:00→17:42)
[2018-06-14] MEDS: FLUoxetine 20 MG Capsule PO SCH ×3 (10:00→23:08)
[2018-06-14] MEDS ORDERED: FLUoxetine 20 MG Capsule PO SCH (14:50)
--- NOTE | 2018-06-14 14:54 | P.CONPSY ---
Provisional Diagnosis Admission Date: June 11, 2018 14:45 Nabb I.: Adjustment disorder with depressed mood and anxiety History of Present Illness Service: ER Primary Care Provider: UNKNOWN Chief Complaint: Rash History of Present Illness: The patient is a 47-year-old woman, domiciled along in [place], single, unemployed, with a psychiatric history of depression and anxiety, polysubstance dependence including cannabis, amphetamines, cocaine, no prepsychotic hospitalizations, no previous suicide attempts, she is on Prozac 60 mg, BuSpar 15 mg twice daily, prescribed by PCP,-who presented to the ED at [facility] [place] on 06/11/18 with complaints of diffuse body rash, fevers, sore throat, and an outbreak of shingles to her buttock. Patient states that she has a history of hypertension and was was recently started on Diltiazem 180mg daily on 2017. Prior to that she had been on Norvasc but had swelling and prior to that she had been in Lisinopril. Pt also with a recent hx of using multiple illicit drugs. Around 6 days ago she used, reportedly for the first time, smoked crack cocaine and took mushrooms on the same day. She also smoked pot that same day which was not a new drug for her. She reports that 4 days ago she noticed a mild sore throat and some post-nasal drip. Then 2 days ago she left a friend inject her right arm with crystal meth. Her right antecubital fossa has become increasingly red and swollen and tender. Then yesterday the pt reports that she developed a rash on her neck and quickly spread to her abdomen, back, arms and legs. She has some erythematous macules on her forehead and ears but mostly spares the face. Over the last 2 days she has had some subjective fevers and chills with cold sweats but she did not take her temperature. Consulted to psychiatry due to symptomatology of depression and anxiety. Patient reports that she has being quite depressed in the last days given her medical condition. She says that she has been feeling increased guiltiness, increased sensitivity to rejection, frustration and emptiness, my life is not going anywhere, down the heel. Patient reports that she has no recent to 5 4, she has no kids, no many friends, even though she denies suicidal ideation and states that she wants to get better and try to achieve sobriety. The patient is fully oriented x3, without attention deficit, no fluctuation of consciousness. She is logical, coherent and relevant. No paranoia, no ideas of reference, no agitation, no aggressive behavior present. PMHx: HTN PPHx: Anxiety, Depression, no psychiatric admissions, no suicidal attempt Prozac 20mg TID BuSpar 15mg BID Xanax 0.5mg Q4H PRN PMHx: Family Hx: She reports that her sister and mother have anxiety Substance Hx: He reports daily use of crack cocaine, occasional use of amphetamine, daily use of marijuana Social Hx: The patient was born and raised in [place], she lives alone in [place], single, no kids, unemployed Review of Systems All other systems reviewed negative except as stated in HPI Psychiatric: Reports anxiety, Reports depression, Reports hopelessness, Reports irritability PMFSH - History History Provided By: Patient - Medical History Medical History: Medical History (Last Updated 06/11/18 @ 04:35 by Tien De Leon) Anxiety Asthma Depression HTN (hypertension) Neuropathy - Tobacco History 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 STATES ONLY USE Marijuana Status: Active Route Used: Inhalation Last Used: Reason for Use: Feels Good, Get High Comment: INTERMITTENT CHRONIC USE Methamphetamine Type: CRYSTAL METH Status: Active Route Used: Intramuscular Frequency: TRIED ONCE Last Used: 06/09 Reason for Use: Curiosity Comment: RIGHT AC AREA. STATED LET A FRIEND INJECT HER. FIRST TIME USED-STATES ONLY TIME USED Crack/Cocaine Type: CRACK Status: Active Route Used: Inhalation Last Used: Reason for Use: Curiosity, Get High Comment: STATES SHE HAS USED COCAINE BEFORE. BUT THAT SHE TRIED CRACK FOR THE FIRST TIME - Travel History Recent Travel in the [facility] Within the Last 8 Weeks: No Recent Travel Out of the Country Within the Last 8 Weeks: No - Immunization History Tetanus Immunization: >5 Years Medications and Allergies Active Medications: Active Medications Acetaminophen (Tylenol) 650 mg PO Q4H PRN PRN Reason: Temp > 100.4 Last Admin: 06/13/18 20:42 Dose: 650 mg Al Hydroxide/Mg Hydroxide (Milk Of Magnjasmine Liq) 30 ml PO Q12H PRN PRN Reason: Mild Constipation Alprazolam (Xanax) 0.5 mg PO Q4H PRN PRN Reason: ANXIETY Last Admin: 06/13/18 20:44 Dose: 0.5 mg Buspirone HCl (Buspar) 15 mg PO BID [facility] Last Admin: 06/14/18 10:00 Dose: 15 mg Clonidine HCl (Catapres) 0.1 mg PO Q6H PRN PRN Reason: SBP>160, DBP>90 Diphenhydramine HCl (Benadryl) 25 mg PO Q4H PRN PRN Reason: ITCHING Last Admin: 06/13/18 09:57 Dose: 25 mg Enoxaparin Sodium (Lovenox Inj) 40 mg SQ Q24H [facility] Last Admin: 06/13/18 18:02 Dose: 40 mg Fluoxetine HCl (Prozac) 20 mg PO TID [facility] Last Admin: 06/14/18 10:00 Dose: 20 mg Vancomycin HCl 2,000 mg/ (Sodium Chloride) 520 mls @ 250 mls/hr IV.SIG Q24H [facility] Last Infusion: 06/13/18 22:15 Dose: Infused Ampicillin Sodium 2,000 mg/ (Sodium Chloride) 100 mls @ 400 mls/hr IV.SIG Q4H [facility] Lisinopril (Prinivil) 10 mg PO BID [facility] Last Admin: 06/14/18 10:00 Dose: 10 mg Menthol (Stanley) 1 lozenge BUCCAL Q2H PRN PRN Reason: SORE THROAT Last Admin: 06/12/18 14:05 Dose: 1 lozenge Miscellaneous (Pill Splitter) 1 each OTHER UNSCH PRN PRN Reason: SEE LABEL COMMENTS Miscellaneous Information ([facility] Ordered Lab Info) 0 each OTHER ONCE ONE Stop: 06/14/18 15:46 Nicotine (Habitrol 14 Mg Patch.24 Hr) 1 patch T-DERMAL DAILY [facility] Last Admin: 06/14/18 10:00 Dose: 1 patch Ondansetron HCl (Zofran Inj) 4 mg IV.PUSH Q6H PRN PRN Reason: NAUSEA OR VOMITING Patch Removal (Remove Old Patch) 1 each T-DERMAL DAILY [facility] Last Admin: 06/14/18 10:00 Dose: 1 each Pharmacy Profile Note (Vancomycin Consult Pharmacy) 1 each OTHER UNSCH PRN PRN Reason: Pharmacy to dose Pregabalin (Lyrica) 150 mg PO TID [facility] Last Admin: 06/14/18 10:00 Dose: 150 mg Senna/Docusate Sodium (Deidra-Colace) 1 tab PO BID PRN PRN Reason: constipation Last Admin: 06/13/18 21:02 Dose: 1 tab Sodium Chloride (Ns Flush) 2 ml IV.FLUSH PRN PRN PRN Reason: FLUSH AFTER USING IV ACCESS Last Admin: 06/11/18 09:08 Dose: 2 ml Valacyclovir HCl (Valtrex) 1,000 mg PO Q8HR [facility] Last Admin: 06/14/18 05:55 Dose: 1,000 mg Zinc Acetate/Diphenhydramine (Benadryl 2% Cream) 1 applicatio TOPICAL Q8H PRN PRN Reason: itching rash Last Admin: 06/13/18 09:26 Dose: 1 applicatio Allergies Allergy/AdvReac Type Severity Reaction Status Date / Time alcohol Allergy Mild Anaphylaxis Verified 06/11/18 04:36 sumatriptan AdvReac Intermediate Itching Verified 06/11/18 04:36 Home Medications Medication Instructions Recorded Confirmed Type buspirone 15 mg PO BID 06/11/18 06/11/18 History diltiazem HCl 180 mg PO DAILY 06/11/18 06/11/18 History fluoxetine 20 mg PO TID 06/11/18 06/11/18 History pregabalin [Lyrica] 150 mg PO TID 06/11/18 06/11/18 History Exam Vital signs: Vital Signs 06/13/18 15:59 06/13/18 19:09 06/14/18 00:00 Temperature 98.2 F 99.3 F 98.4 F Pulse Rate 78 82 68 Respiratory Rate 16 18 20 Blood Pressure 103/51 L 119/55 L 104/56 L Pulse Oximetry 95 98 96 06/14/18 04:00 06/14/18 08:00 06/14/18 12:00 Temperature 98.8 F 98.3 F 98.2 F Pulse Rate 70 77 73 Respiratory Rate 18 16 16 Blood Pressure 111/59 L 118/73 113/55 L Pulse Oximetry 99 99 97 Intake & Output 06/13/18 06/14/18 06/14/18 18:59 06:59 18:59 Intake Total 520 / 520 Balance 520 / 520 Intake: IV 520 / 520 Vancomycin Inj 2,000 MG In NS 520 / 520 Inj 500 ML @ 250 mls/hr IV.SIG Q24H [facility] Rx#:[id number] Mental Status Examination Appearance: Appropriate Consciousness: Alert Orientation: x4 Motor Activity: Normal gait Speech: Unremarkable Language: Adequate Fund of Knowledge: Adequate Attention and Concentration: Adequate Memory: Unremarkable Mood: Appropriate, Sad Affect: Appropriate, Sad Thought Process & Associations: Intact Thought Content: Appropriate Hallucination Type: None Delusion Type: None Suicidal Ideation: No Suicidal Plan: No Suicidal Intention: No Homicidal Ideation: No Homicidal Plan: No Homicidal Intention: No Insight: Adequate Judgment: Adequate Assessment and Plan - Assessment (1) Adjustment disorder with depressed mood Code(s): F43.21 - Adjustment disorder with depressed mood Status: Acute - Plan Plan: Patient presents symptomatology of depression and anxiety in the context of acute medical problems, lack of social and family support. She reports increased sadness, hopelessness, helplessness, increased sense of guiltiness, mood swings, anxiety, but denies suicidal and homicidal ideation, denies visual and auditory hallucinations per the patient has psychiatric history of depression and anxiety, no previous psychiatric hospitalizations, no previous suicide attempts. She has been taking Prozac 20 mg, [id number] mg twice daily as an outpatient prescribed by PCP. At this moment she does not meet criteria for involuntary psychiatric admission, but I offer her a voluntary psychiatric admission for medication adjustment. The patient is going to think about it. Meanwhile and will increase the Prozac to 20 mg, BuSpar to 15 mg 3 times daily. Motivation, support, psychoeducation provided. Justification for Continued Inpatient Stay: Patient was offered a voluntary psychiatric admission. I will follow-up.
[2018-06-14] MEDS ORDERED: Pharmacy Ordered Lab Info OTHER ONE (15:45)
[2018-06-14] MEDS: Vancomycin Inj 2,000 MG in Sodium Chlor 0.9% Inj 500 ML IV.SIG SCH (16:00)
--- NOTE | 2018-06-14 17:33 | P.PNIM ---
Subjective Interval history: Pt has NO new complaints. Physical Exam Vital signs: Last Vital Signs Temp 98.2 F 06/14/18 12:00 Pulse 73 06/14/18 12:00 Resp 16 06/14/18 12:00 BP 113/55 L 06/14/18 12:00 Pulse Ox 97 06/14/18 12:00 Narrative: GENERAL: NAD, AAOx3 SKIN: Warm and dry. Patient has diffuse macular rash to her anterior chest, back, neck, arms and legs even in the groin area. Some spreading to the hands and feet. The rash is more confluent on her chest today. Some noted macular rash on the forehead/scalp and on the ears bilaterally. There is also macular papular rash lesion to her buttocks is consistent with shingles. CARDIO: Regular rate and rhythm. RESP: CTA bilaterally. ABD: +BS, soft, non-tender, nondistended. EXT: Erythema, swelling in the right antecubital fossa, improved and more localized. Results Labs CBC & Chem 7: 06/14/18 07:33 06/12/18 04:51 Assessment and Plan Assessment (1) Adjustment disorder with depressed mood: Code(s): F43.21 - Adjustment disorder with depressed mood Status: Acute Plan New onset rash with group A strep positive throat culture, possible Scarlet fever - Pt is a 47 y/o female with HTN, depression/anxiety, chronic back pain, shingles and tobacco abuse. - She presented to the ED at [facility] [place] with complaints of diffuse body rash , fevers, sore throat, and an outbreak of shingles to her buttock. Patient states that she has a history of hypertension and was was recently started on Diltiazem 180mg daily on 05/30/2018. Prior to that she had been on Norvasc but had swelling and prior to that she had been in Lisinopril. Pt also with a recent hx of using multiple illicit drugs. Around 6 days ago she used, reportedly for the first time, smoked crack cocaine and took mushrooms on the same day. She also smoked pot that same day which was not a new drug for her. She reports that 4 days ago she noticed a mild sore throat and some post-nasal drip. Then 2 days ago she left a friend inject her right arm with crystal meth. Her right antecubital fossa has become increasingly red and swollen and tender. Then yesterday the pt reports that she developed a rash on her neck and quickly spread to her abdomen, back, arms and legs. She has some erythematous macules on her forehead and ears but mostly spares the face. Over the last 2 days she has had some subjective fevers and chills with cold sweats but she did not take her temperature. - In the ED was noted to have exudative tonsillitis and throat swab tested positive for Group A Strep. - Her WBC count was 12,000 without any left shift at admission - Electrolytes were all within normal limits with the exception of potassium of 3.1 which was replaced. LFTs were within normal limits. - [place]-screen negative. - HIV negative. - She was given an IM injection of Bicillin 1,200,000 units IM x1 and Decadron. - Pt is on contact isolation - Tylenol PRN fevers - Zofran PRN nausea - Pt was given IVF in the ED - Cardiac diet as tolerated - ID has ordered, HIV RNA PCR to r/o acute retroviral syndrome, VZV RNA - PCR to r/o disseminated Herpes zoster, unlikely. Results pending. f/u with PCP outpt. - Hepatitis profile --> neg - RPR --> negative - Case d/w ID, Dr. Thao (06/14/18). Rash NOT c/w herpes - change antimicrobial therapy: - Amoxicillin 500mg TID x 7d - Doxycyclin 100mg BID x 7d - Will discharge to home (06/15/18), if pt remains stable - Blood cultures with NGTD - Benadryl Oral and topical PRN Cellulitis right antecubital fossa, site of IV drug injection - US soft tissue (06/11/18) --> Soft tissue swelling with stranding fluid and hyperemia but no discrete abscess. - stop Vancomycin for possible MRSA coverage - see above Shingles, right buttock - Patient also has shingles to her buttocks which has been a recurrent issue for some time. - She states that she had it a few weeks ago and it resolved however is now coming back again about a week ago. - She denies being on any antiviral medications in the past - Valtrex 1000mg po TID, stop - see above Chronic back pain Lumbar radiculopathy - Pt takes Lyrica 150mg TID for this for the last 6 months, this was continued HTN - Pt had been recently started on Diltiazem 180mg po daily on 05/30/18. With this new rash we will hold on resuming the Diltiazem at this time, unclear if this may be attributing to the rash as it is a possible SE of Diltiazem or if the rash is strictly related to the strep infection. - Clonidine PRN for now - Prior to this she was on Norvasc which caused swelling and prior to that she was on Lisinopril but this reportedly did not control her BP well - Pt was started on Procardia XL 30mg daily for BP control but her BP this afternoon has been much lower. - Stop the Procardia and start Lisinopril 10mg po BID in AM. Anxiety - Cont. Prozac 20mg TID. Recommendations for 120mg exceed literature recommendations. I will defer this to [facility] Psychiatry outpt. - Cont. Buspar 15mg BID. Increase to TID per Psychiatry - Cont. Xanax 0.5mg Q4H PRN - Pt should also followup outpt with [facility] Mental health upon discharge. Progress Note: Quality VTE Deep Vein Thrombosis/Pulmonary Embolism Present on Admission: No
[2018-06-14] MEDS: ALPRAZolam 0.5 MG Tablet PO PRN ×2 (17:41→23:06)
[2018-06-14] MEDS: Acetaminophen 325 MG Tablet PO PRN (17:45)
[2018-06-14] MEDS: Enoxaparin Inj 40 MG/0.4 ML Syringe SQ SCH (17:46)
--- NOTE | 2018-06-14 17:58 | P.PNID ---
Subjective Remarks: chart reviewed dw pt dw Dr Cox Ms. Calvert is a 47-year-old female tried to shoot IV drugs into R forearm "first and last time" came in for sore throat, generalysed macular-papular rash, mildly pruritic and R forearm tender lump US negative for abscess rash somewahat improved + GAS HIV, RPR and HCV/HBV neg Overnight events reviewed No fevers Antibiotics: Vanco IV Acyclovir oral Lines: Lines ok Past Medical History: reviewed Allergies/Adverse Reactions: Allergies alcohol Allergy (Mild, Verified 06/11/18 04:36) Anaphylaxis sumatriptan Adverse Reaction (Intermediate, Verified 06/11/18 04:36) Itching Objective Vital Signs 06/13/18 19:09 06/14/18 00:00 06/14/18 04:00 Temperature 99.3 F 98.4 F 98.8 F Pulse Rate 82 68 70 Respiratory Rate 18 20 18 Blood Pressure 119/55 L 104/56 L 111/59 L Pulse Oximetry 98 96 99 06/14/18 08:00 06/14/18 12:00 06/14/18 16:00 Temperature 98.3 F 98.2 F 98.7 F Pulse Rate 77 73 71 Respiratory Rate 16 16 16 Blood Pressure 118/73 113/55 L 112/60 Pulse Oximetry 99 97 98 Intake & Output 06/13/18 06/14/18 06/14/18 18:59 06:59 18:59 Intake Total 520 / 520 Balance 520 / 520 Intake: IV 520 / 520 Vancomycin Inj 2,000 MG In NS 520 / 520 Inj 500 ML @ 250 mls/hr IV.SIG Q24H [facility] Rx#:[id number] 06/11/18 06:25 Blood - Peripheral Aerobic Blood Culture - Preliminary No growth in 3 days 06/11/18 06:25 Blood - Peripheral Anaerobic Blood Culture - Preliminary No growth in 3 days 06/11/18 06:35 Blood - Peripheral Aerobic Blood Culture - Preliminary No growth in 3 days 06/11/18 06:35 Blood - Peripheral Anaerobic Blood Culture - Preliminary No growth in 3 days 06/11/18 09:17 Random Urine Urine Culture - Final 50-100,000 cfu/mL mixed robina (probable contaminants ) Lab - Hematology Results 06/14/18 07:33 WBC 9.0 RBC 4.19 Hgb 13.4 Hct 38.5 MCV 92.0 MCH 32.0 MCHC 34.8 RDW 13.1 Plt Count 261 MPV 9.2 Neut % (Auto) 49.3 Lymph % (Auto) 34.9 [place] % (Auto) 10.9 H Eos % (Auto) 3.7 Baso % (Auto) 1.2 Neut # (Auto) 4.4 Lymph # (Auto) 3.1 [place] # (Auto) 1.0 H Eos # (Auto) 0.3 Baso # (Auto) 0.1 WBC Differential . Differential Comment Auto diff final Imaging: ITS Impressions Soft Tissue Ultrasound 06/11/18 00:00 CONCLUSION: Soft tissue swelling with stranding fluid and hyperemia but no discrete abscess. Chest X-Ray 06/11/18 06:28 CONCLUSION: No acute disease Physical Exam: GENERAL: Well-nourished well-developed, not in acute distress SKIN: Diffuse maculopapular rash all over her body neck chest abdomen back bilateral lower extremities bilateral upper extremities. Right AC fossa area there is a 5 cm fairly flat area that is erythematous indurated but no fluctuance noted. There was warmth noted. Buttock area with right side vesicular lesions fairly characteristic of herpes zoster lesions. HEAD: Atraumatic. Normocephalic. No temporal or scalp tenderness. EYES: Pupils equal round and reactive. Scleral icterus. No injection or drainage. No petechia ENT: Throat with no erythema, tonsillar enlargement or exudate. NECK: Trachea midline. Supple, nontender, no meningeal signs. CARDIOVASCULAR: HS audible. RESPIRATORY: Clear to auscultation bilaterally. GASTROINTESTINAL: Abdomen soft nontender. MUSCULOSKELETAL: Extremities without clubbing, cyanosis. NEUROLOGICAL: Alert oriented 3. Nonfocal. Psych cooperative IV line sites ok. Assessment and Plan - Plan h/o fever, now rash, Grp A strep tonsillitis ? Group A Strep related. Rule out acute retroviral syndrome, acute syphilis patient has risk factors. Right AC fossa early abscess vs thrombophlebitis. Herpes zoster right buttock. Leucocytosis: infection but recd decardon so appears increased since admission. No signs of worsening infection. Recs: Amoxicillin 500 mg po tid for strep throat Valtrex 1 gm tid for herpes zosteer doxycylline for phelrmonoius R forearm lesion case dw Dr Dayron rm RN
[2018-06-14] MEDS: Acyclovir 200 MG Capsule PO SCH (23:08)
[2018-06-14 23:53] LABS: Varicella-Zoster V DNA PCR <500 (<500 copies)
[2018-06-15 00:05] LABS: Calcium 8.1 mg/dL (8.5-10.1); Carbon Dioxide 30.4 meq/L (21.0-32.0); Potassium 3.6 meq/L (3.5-5.1)
[2018-06-15] MEDS: Acyclovir 200 MG Capsule PO SCH ×2 (05:05→12:05)
[2018-06-15] MEDS: Lisinopril 10 MG Tablet PO SCH ×2 (12:06→21:56)
[2018-06-15] MEDS: FLUoxetine 20 MG Capsule PO SCH ×4 (12:08→17:42)
[2018-06-15] MEDS: Pregabalin 75 MG Capsule PO SCH ×4 (12:08→17:42)
[2018-06-15] MEDS: Acetaminophen 325 MG Tablet PO PRN ×3 (12:19→22:05)
[2018-06-15] MEDS: ALPRAZolam 0.5 MG Tablet PO PRN ×3 (12:19→22:05)
[2018-06-15] MEDS: valACYclovir 500 MG Tab PO SCH ×2 (14:31→22:07)
--- NOTE | 2018-06-15 14:46 | P.PNIM ---
Subjective Interval history: Follow up: Rash with group A strep positive throat culture, right AC fossa cellulitis and herpes simple buttock pt endorses itching Physical Exam Vital signs: Last Vital Signs Temp 98.1 F 06/15/18 09:20 Pulse 63 06/15/18 09:20 Resp 16 06/15/18 09:20 BP 130/68 06/15/18 09:20 Pulse Ox 98 06/15/18 09:20 Narrative: GENERAL: NAD, AAOx3 SKIN: Warm and dry. Patient has improving diffuse macular rash to her anterior chest, back, neck, arms and legs even in the groin area. Some spreading to the hands and feet. The rash is improving. There is also improving macular papular rash lesion to her buttocks is consistent with shingles. CARDIO: Regular rate and rhythm. RESP: CTA bilaterally. ABD: +BS, soft, non-tender, nondistended. EXT: Erythema, swelling in the right antecubital fossa, improved and more localized. Results Labs CBC & Chem 7: 06/14/18 07:33 06/14/18 23:04 Assessment and Plan Assessment (1) Shingles rash: Code(s): B02.9 - Zoster without complications Status: Acute (2) Cellulitis: Code(s): L03.90 - Cellulitis, unspecified Status: Acute (3) HTN (hypertension): Code(s): I10 - Essential (primary) hypertension Status: Chronic (4) Strep throat: Code(s): J02.0 - Streptococcal pharyngitis Status: Acute Plan New onset rash with group A strep positive throat culture, possible Scarlet fever - Pt is a 47 y/o female with HTN, depression/anxiety, chronic back pain, shingles and tobacco abuse. - She presented to the ED at [facility] [place] on [place]/11/18 with complaints of diffuse body rash , fevers, sore throat, and an outbreak of shingles to her buttock. Patient states that she has a history of hypertension and was was recently started on Diltiazem 180mg daily on 05/30/2018. Prior to that she had been on Norvasc but had swelling and prior to that she had been in Lisinopril. Pt also with a recent hx of using multiple illicit drugs. Around 6 days ago she used, reportedly for the first time, smoked crack cocaine and took mushrooms on the same day. She also smoked pot that same day which was not a new drug for her. She reports that 4 days ago she noticed a mild sore throat and some post-nasal drip. Then 2 days ago she left a friend inject her right arm with crystal meth. Her right antecubital fossa has become increasingly red and swollen and tender. Then yesterday the pt reports that she developed a rash on her neck and quickly spread to her abdomen, back, arms and legs. She has some erythematous macules on her forehead and ears but mostly spares the face. Over the last 2 days she has had some subjective fevers and chills with cold sweats but she did not take her temperature. - In the ED was noted to have exudative tonsillitis and throat swab tested positive for Group A Strep. - Her WBC count was 12,000 without any left shift at admission - Electrolytes were all within normal limits with the exception of potassium of 3.1 which was replaced. LFTs were within normal limits. - [place]-screen negative. - HIV negative. - She was given an IM injection of Bicillin 1,200,000 units IM x1 and Decadron. - Pt is on isolation - Tylenol PRN fevers - Zofran PRN nausea - Pt was given IVF in the ED - Cardiac diet as tolerated - ID has ordered, HIV RNA PCR to r/o acute retroviral syndrome, VZV RNA - PCR to r/o disseminated Herpes zoster, unlikely. Results pending. f/u with PCP outpt. - Hepatitis profile --> neg - RPR --> negative - Case d/w ID, Dr. Thao (06/14/18). - change antimicrobial therapy: - Amoxicillin 500mg TID x 7d - Doxycyclin 100mg BID x 7d - Discussed with ID DR. Thao again 06/15/18 concerned that rash has worsedned DCd Amoxicillin Started Keflex Continued Doxycyclin 100 mg PO BID Continued Valtrex 100 mg PO TID - Blood cultures with NGTD - Benadryl Oral and topical PRN Cellulitis right antecubital fossa, site of IV drug injection - US soft tissue (06/11/18) --> Soft tissue swelling with stranding fluid and hyperemia but no discrete abscess. - stop Vancomycin for possible MRSA coverage - see above Shingles, right buttock - Patient also has shingles to her buttocks which has been a recurrent issue for some time. - She states that she had it a few weeks ago and it resolved however is now coming back again about a week ago. - She denies being on any antiviral medications in the past - Valtrex 1000mg po TID - see above Chronic back pain Lumbar radiculopathy - Pt takes Lyrica 150mg TID for this for the last 6 months, this was continued HTN - Pt had been recently started on Diltiazem 180mg po daily on 05/30/18. With this new rash we will hold on resuming the Diltiazem at this time, unclear if this may be attributing to the rash as it is a possible SE of Diltiazem or if the rash is strictly related to the strep infection. - Clonidine PRN for now - Prior to this she was on Norvasc which caused swelling and prior to that she was on Lisinopril but this reportedly did not control her BP well - Pt was started on Procardia XL 30mg daily for BP control but her BP this afternoon has been much lower. - Stop the Procardia and start Lisinopril 10mg po BID in AM. Anxiety - Cont. Prozac 20mg TID. Recommendations for 120mg exceed literature recommendations. I will defer this to [facility] Psychiatry outpt. - Cont. Buspar 15mg BID. Increase to TID per Psychiatry - Cont. Xanax 0.5mg Q4H PRN - Pt should also followup outpt with [facility] Mental health upon discharge. Message left with [facility] case management. Progress Note: Quality VTE Deep Vein Thrombosis/Pulmonary Embolism Present on Admission: No
--- NOTE | 2018-06-15 16:11 | P.PNID ---
Subjective Remarks: sujey Cox PCR HSV, VZV neg Overnight events reviewed No fevers c/o worsening rash and itching throat is better Antibiotics: amoxicillin doxy Acyclovir oral Lines: Lines ok Past Medical History: reviewed Allergies/Adverse Reactions: Allergies alcohol Allergy (Mild, Verified 06/11/18 04:36) Anaphylaxis sumatriptan Adverse Reaction (Intermediate, Verified 06/11/18 04:36) Itching Objective Vital Signs 06/14/18 16:00 06/14/18 20:00 06/15/18 00:00 Temperature 98.7 F 98.7 F 98.8 F Pulse Rate 71 62 67 Respiratory Rate 16 14 14 Blood Pressure 112/60 107/59 L 122/69 Pulse Oximetry 98 98 97 06/15/18 04:00 06/15/18 09:20 Temperature 98.1 F 98.1 F Pulse Rate 65 63 Respiratory Rate 14 16 Blood Pressure 121/58 L 130/68 Pulse Oximetry 98 98 06/11/18 06:25 Blood - Peripheral Aerobic Blood Culture - Preliminary No growth in 4 days 06/11/18 06:25 Blood - Peripheral Anaerobic Blood Culture - Preliminary No growth in 4 days 06/11/18 06:35 Blood - Peripheral Aerobic Blood Culture - Preliminary No growth in 4 days 06/11/18 06:35 Blood - Peripheral Anaerobic Blood Culture - Preliminary No growth in 4 days 06/11/18 09:17 Random Urine Urine Culture - Final 50-100,000 cfu/mL mixed robina (probable contaminants ) Lab - Hematology Results 06/14/18 07:33 WBC 9.0 RBC 4.19 Hgb 13.4 Hct 38.5 MCV 92.0 MCH 32.0 MCHC 34.8 RDW 13.1 Plt Count 261 MPV 9.2 Neut % (Auto) 49.3 Lymph % (Auto) 34.9 [place] % (Auto) 10.9 H Eos % (Auto) 3.7 Baso % (Auto) 1.2 Neut # (Auto) 4.4 Lymph # (Auto) 3.1 [place] # (Auto) 1.0 H Eos # (Auto) 0.3 Baso # (Auto) 0.1 WBC Differential . Differential Comment Auto diff final Lab - Chemistry Results 06/14/18 23:04 Sodium 143 Potassium 3.6 Chloride 107 Carbon Dioxide 30.4 Anion Gap 6 BUN 11 Creatinine 1.06 H Estimated GFR 56 L Random Glucose 88 Calcium 8.1 L Imaging: ITS Impressions Soft Tissue Ultrasound 06/11/18 00:00 CONCLUSION: Soft tissue swelling with stranding fluid and hyperemia but no discrete abscess. Chest X-Ray 06/11/18 06:28 CONCLUSION: No acute disease Physical Exam: GENERAL: Well-nourished well-developed, not in acute distress SKIN: Diffuse maculopapular rash all over her body neck chest abdomen back bilateral lower extremities bilateral upper extremities. Right AC fossa area with resolving area of erythema Buttock area with fully crusted small lesion EYES: Pupils equal round and reactive. Scleral icterus. No injection or drainage. No petechia HEENT: NECK: Trachea midline. Supple, nontender, no meningeal signs. CARDIOVASCULAR: no murmurs RESPIRATORY: Clear to auscultation bilaterally. GASTROINTESTINAL: Abdomen soft nontender. MUSCULOSKELETAL: Extremities without clubbing, cyanosis. NEUROLOGICAL: Alert oriented 3. Nonfocal. Psych cooperative IV line sites ok. Assessment and Plan - Plan h/o fever, now rash, Grp A strep tonsillitis ? Group A Strep related. Rule out acute retroviral syndrome, acute syphilis patient has risk factors. Right AC fossa early abscess vs thrombophlebitis. Herpes zoster right buttock. Leucocytosis: infection but recd decardon so appears increased since admission. No signs of worsening infection. Recs: dc Amoxicillin Keflex instead complete Valtrex 1 gm tid for herpes zoster (include acyclovir tome) cont doxycylline for phelrmonoius R forearm lesion OK to dc if rash gets better dc isolation case dw Dr Dayron rm RN
[2018-06-15] MEDS: Enoxaparin Inj 40 MG/0.4 ML Syringe SQ SCH (17:43)
[2018-06-15] MEDS ORDERED: Montelukast 10 MG Tablet PO SCH (21:00)
[2018-06-16] MEDS: valACYclovir 500 MG Tab PO SCH ×2 (05:41→13:00)
[2018-06-16] MEDS: Acetaminophen 325 MG Tablet PO PRN ×2 (05:43→11:01)
[2018-06-16 07:29] VITALS: RESP 16
[2018-06-16] MEDS: ALPRAZolam 0.5 MG Tablet PO PRN (08:13)
[2018-06-16] MEDS: FLUoxetine 20 MG Capsule PO SCH ×2 (08:13→12:54)
[2018-06-16] MEDS: Pregabalin 75 MG Capsule PO SCH ×2 (08:14→12:54)
[2018-06-16] MEDS: Lisinopril 10 MG Tablet PO SCH (08:14)
[2018-06-16 11:55] VITALS: BP 120/59; PULSE 86; TEMP 98.4; O2SAT 98
--- NOTE | 2018-06-16 13:45 | P.DS ---
DS: Providers Date of admission: 06/11/18 14:45 Primary care physician: UNKNOWN Consults: 06/11/18 14:20 Consult to Infectious Diseases Routine Consulting Provider: Soraida Taylor Reason for Consultation: Rash, possible scarlet fever, cellulitis at IV drug injection site, shingles on buttock Notified:: Service Spoke with:: IRENE Date Notified:: 06/11/18 Time Notified:: 14:22 Comments:: CHANGE TO DR.T TAYLOR PER SERVICE(IRENE) Ordering Provider: OLIVIA 06/13/18 16:09 Consult to Psychiatry Routine Consulting Provider: Fabián Petty Reason for Consultation: depression, increased during hospitalization. Notified:: Office Spoke with:: HERNESTO Date Notified:: 06/13/18 Time Notified:: 16:11 Ordering Provider: OLIVIA DS: Diagnosis Discharge Diagnosis (1) Shingles rash: Status: Acute (2) Cellulitis: Status: Acute (3) HTN (hypertension): Status: Chronic (4) Strep throat: Status: Acute DS: Summary New onset rash with group A strep positive throat culture, possible Scarlet fever - Pt is a 47 y/o female with HTN, depression/anxiety, chronic back pain, shingles and tobacco abuse. - [place] [facility] [place] with complaints of diffuse body rash , fevers, sore throat, and an outbreak of shingles to her buttock. Patient states that she has a history of hypertension and was was recently started on Diltiazem 180mg daily on 05/30/2018. Prior to that she had been on Norvasc but had swelling and prior to that she had been in Lisinopril. Pt also with a recent hx of using multiple illicit drugs. Around 6 days ago she used, reportedly for the first time, smoked crack cocaine and took mushrooms on the same day. She also smoked pot that same day which was not a new drug for her. She reports that 4 days ago she noticed a mild sore throat and some post-nasal drip. Then 2 days ago she left a friend inject her right arm with crystal meth. Her right antecubital fossa has become increasingly red and swollen and tender. Then yesterday the pt reports that she developed a rash on her neck and quickly spread to her abdomen, back, arms and legs. She has some erythematous macules on her forehead and ears but mostly spares the face. Over the last 2 days she has had some subjective fevers and chills with cold sweats but she did not take her temperature. - In the ED was noted to have exudative tonsillitis and throat swab tested positive for Group A Strep. - Her WBC count was 12,000 without any left shift at admission - Electrolytes were all within normal limits with the exception of potassium of 3.1 which was replaced. LFTs were within normal limits. - [place]-screen negative. - HIV negative. - She was given an IM injection of Bicillin 1,200,000 units IM x1 and Decadron. - Pt is on isolation - Tylenol PRN fevers - Zofran PRN nausea - Pt was given IVF in the ED - Cardiac diet as tolerated - ID has ordered, HIV RNA PCR to r/o acute retroviral syndrome, VZV RNA - PCR to r/o disseminated Herpes zoster, unlikely. Results pending. f/u with PCP outpt. - Hepatitis profile --> neg - RPR --> negative - Case d/w ID, Dr. Thao (06/14/18). - change antimicrobial therapy: - Amoxicillin 500mg TID x 7d, changed to keflex x5d upon discharge - Doxycyclin 100mg BID, additional 5d upon discharge - Valtrex x 5d additional upon discharge - f/u with CP PCP in 1 week - Blood cultures with NGTD - Benadryl Oral and topical PRN Cellulitis right antecubital fossa, site of IV drug injection - US soft tissue (06/11/18) --> Soft tissue swelling with stranding fluid and hyperemia but no discrete abscess. - stop Vancomycin for possible MRSA coverage - see above Shingles, right buttock - Patient also has shingles to her buttocks which has been a recurrent issue for some time. - She states that she had it a few weeks ago and it resolved however is now coming back again about a week ago. - She denies being on any antiviral medications in the past - Valtrex 1000mg po TID - see above Chronic back pain Lumbar radiculopathy - Pt takes Lyrica 150mg TID for this for the last 6 months, this was continued HTN - Pt had been recently started on Diltiazem 180mg po daily on 05/30/18. With this new rash we will hold on resuming the Diltiazem at this time, unclear if this may be attributing to the rash as it is a possible SE of Diltiazem or if the rash is strictly related to the strep infection. - Clonidine PRN for now - Prior to this she was on Norvasc which caused swelling and prior to that she was on Lisinopril but this reportedly did not control her BP well - Pt was started on Procardia XL 30mg daily for BP control but her BP this afternoon has been much lower. - Stop the Procardia and start Lisinopril 10mg po BID in AM. Anxiety - Cont. Prozac 20mg TID. Recommendations for 120mg exceed literature recommendations. I will defer this to [facility] Psychiatry outpt. - Cont. Buspar 15mg BID. Increase to TID per Psychiatry - Cont. Xanax 0.5mg Q4H PRN - Pt should also followup outpt with [facility] upon discharge. Message left with Hermilo SHAVON case management. Time Spent with Patient Total time spent providing and/or coordinating discharge services: Quality: VTE Deep Vein Thrombosis/Pulmonary Embolism Present on Admission: No DS: Data Labs on day of discharge: Labs from last 24 hours 06/13/18 12:09 HIV RNA copies/mL Ultra Less than 20.0 HIV RNA logcopies/mL Ult Less than 1.30 Impressions Soft Tissue Ultrasound 06/11/18 00:00 CONCLUSION: Soft tissue swelling with stranding fluid and hyperemia but no discrete abscess. Chest X-Ray 06/11/18 06:28 CONCLUSION: No acute disease Discharge Plan Discharge Disposition Patient Disposition: 01 Discharge Home Discharge Condition Condition: Stable Discharge Details Anticipated Discharge Date: 06/15/18 Physicians Team ED Provider: Adis Rios Primary Care Provider: UNKNOWN, Attending Provider: Song Cheng Other Providers: Soraida Taylor ; Fabián Petty Rxs /Orders / Referrals /Forms Prescriptions: New buspirone 5 mg Tablet 15 mg PO TID 30 Days Qty: 270 RF: 0 lisinopril 10 mg Tablet 10 mg PO BID 30 Days Qty: 60 RF: 0 doxycycline hyclate 100 mg Capsule 100 mg PO Q12HR 7 Days Qty: 14 RF: 0 valacyclovir [Valtrex] 500 mg Tablet 1,000 mg PO BID 7 Days Qty: 28 RF: 0 cephalexin 500 mg Capsule 500 mg PO Q6HR 7 Days Qty: 28 RF: 0 Continue fluoxetine 20 mg Capsule 20 mg PO TID RF: 0 pregabalin [Lyrica] 150 mg Capsule 150 mg PO TID RF: 0 Discontinued diltiazem HCl 180 mg Capsule,Extended Release 24 Hr 180 mg PO DAILY RF: 0 buspirone 15 mg Tablet 15 mg PO BID RF: 0 Referrals: Axel Cheng MD [Physician] - See Instructions (Please follow up with [facility] mental health) UNKNOWN, [Primary Care Provider] - See Instructions Elissa Chavarria DO [Non-Staff] - See Instructions (follow up in 1 week) Status ED Status: Left Department
== END 2018-06-16 17:15 | disposition home or self-care (01) ==
LOC: NEPC 04:01 → NEDA 04:01 → NEPHCDU 09:25 → N04 06-15 20:13
PROVIDERS: ADMIT Hospitalist; ATTEND Hospitalist
DX: M54.16 Radiculopathy, lumbar region; F43.21 Adjustment disorder with depressed mood; A38.9 Scarlet fever, uncomplicated; F41.9 Anxiety disorder, unspecified; B02.9 Zoster without complications; F17.210 Nicotine dependence, cigarettes, uncomplicated; L03.113 Cellulitis of right upper limb; E66.9 Obesity, unspecified; G89.29 Other chronic pain; Z68.41 Body mass index [BMI] 40.0-44.9, adult; J02.0 Streptococcal pharyngitis; I10 Essential (primary) hypertension; F12.90 Cannabis use, unspecified, uncomplicated; F19.90 Other psychoactive substance use, unspecified, uncomplicated